=== PATIENT | female | born 1955 | race Caucasian/White ===

== ENCOUNTER 2023-09-09 09:42 | Outpatient (RCR) | payer OTHER, SELFPAY | END 2023-09-09 23:59 | disposition home or self-care (01) | LOC: RPT 09:42 | PROVIDERS: ATTENDING PHYSICIAN Obstetrics & Gynecology; PRIMARYCARE PHYSICIAN Family Medicine | DX: M62.89 Other specified disorders of muscle (principal); N81.6 Rectocele; Z73.6 Limitation of activities due to disability; M62.81 Muscle weakness (generalized); R27.8 Other lack of coordination | CPT/HCPCS: 97110; 97140 ==

== ENCOUNTER 2023-10-14 13:55 | Outpatient (RCR) | payer OTHER, SELFPAY | END 2023-10-14 23:59 | disposition home or self-care (01) | LOC: RPT 13:55 | PROVIDERS: ATTENDING PHYSICIAN Obstetrics & Gynecology; PRIMARYCARE PHYSICIAN Family Medicine | DX: M62.89 Other specified disorders of muscle (principal); N81.6 Rectocele; Z73.6 Limitation of activities due to disability; M62.81 Muscle weakness (generalized); R27.8 Other lack of coordination | CPT/HCPCS: 97014; 97110; 97112; 97140; 97530 ==

== ENCOUNTER 2023-11-04 12:56 | Outpatient (RCR) | payer OTHER, SELFPAY | END 2023-11-04 14:12 | disposition home or self-care (01) | LOC: RPT 12:56 | PROVIDERS: ATTENDING PHYSICIAN Obstetrics & Gynecology; PRIMARYCARE PHYSICIAN Family Medicine | DX: M62.89 Other specified disorders of muscle (principal); N81.6 Rectocele; Z73.6 Limitation of activities due to disability; M62.81 Muscle weakness (generalized); R27.8 Other lack of coordination | CPT/HCPCS: 97530 ==

== ENCOUNTER → 2024-02-10 13:19 | Outpatient (REF) | payer SELFPAY | LOC: HWRAD 13:19 | PROVIDERS: ATTENDING PHYSICIAN Family Medicine | DX: I70.0 Atherosclerosis of aorta (principal) | CPT/HCPCS: 75571 ==

== ENCOUNTER → 2024-03-03 11:37 | Outpatient (REF) | payer OTHER, SELFPAY | LOC: PET 11:37 | PROVIDERS: ATTENDING PHYSICIAN Internal Medicine Cardiovascular Disease | DX: I25.10 Atherosclerotic heart disease of native coronary artery without angina pectoris (principal) | CPT/HCPCS: 78431; A9555; J2785 ==

== ENCOUNTER → 2024-03-09 12:08 | Outpatient (REF) | payer OTHER, SELFPAY | LOC: HWWDC 12:08 | PROVIDERS: ATTENDING PHYSICIAN Obstetrics & Gynecology; FAMILY PHYSICIAN Family Medicine | DX: Z12.31 Encounter for screening mammogram for malignant neoplasm of breast (principal) | CPT/HCPCS: 77063; 77067 ==

== ENCOUNTER → 2024-06-29 14:38 | Outpatient (REF) | payer OTHER, SELFPAY | LOC: HWRAD 14:38 | PROVIDERS: ATTENDING PHYSICIAN Family Medicine; OTHER PHYSICIAN Obstetrics & Gynecology | DX: N95.1 Menopausal and female climacteric states (principal) | CPT/HCPCS: 77080 ==

== ENCOUNTER → 2024-11-27 16:40 | Outpatient (REF) | payer OTHER, SELFPAY | LOC: HWRAD 16:40 | PROVIDERS: ATTENDING PHYSICIAN Student in an Organized Health Care Education/Training Program | DX: R09.89 Other specified symptoms and signs involving the circulatory and respiratory systems (principal) | CPT/HCPCS: 71046 ==

== ENCOUNTER → 2024-12-03 13:48 | Outpatient (REF) | payer OTHER, SELFPAY | LOC: RAD 13:48 | PROVIDERS: ATTENDING PHYSICIAN Family Medicine; REFERRING PHYSICIAN Internal Medicine Cardiovascular Disease | DX: I65.23 Occlusion and stenosis of bilateral carotid arteries (principal) | CPT/HCPCS: 93880 ==

== ENCOUNTER → 2024-12-10 14:16 | Outpatient (REF) | payer OTHER, SELFPAY | LOC: HWRAD 14:16 | PROVIDERS: ATTENDING PHYSICIAN Family Medicine | DX: E04.1 Nontoxic single thyroid nodule (principal) | CPT/HCPCS: 76536 ==

== ENCOUNTER 2025-04-04 13:42 | Inpatient (IN) | payer OTHER, SELFPAY ==
[2025-04-04 05:57] VITALS: BP 168/73
[2025-04-04 06:28] LABS: COVID-19 Antigen Positive (Negative)
--- NOTE | 2025-04-04 07:29 | ED.GENMED ---
History of Present Illness
General
Chief Complaint: Cold/Flu/URI Symptoms
Source: patient
Exam Limitations: none
Time Seen by Provider: 04/04/25 07:17
History of Present Illness
History of Present Illness:
69-year-old female presents with 4 days worth of fatigue difficulty breathing fever. She tested positive for COVID at home. She has been trying to hydrate and control her fever. Her symptoms worsened overnight and she presented here. She notes
feeling foggy in her head with decreased appetite and lack of taste. No vomiting. She also notes frequent bowel movements.
Past History
Past History
ED Past Medical History: HTN, Hypercholesterolemia and Other (Vaso vegal syncope, mineral corticocorticoid excess)
ED Past Surgical History: Gynecological (Ovarian cyst removed)
Social History
Tobacco: Former smoker
Alcohol: None
Personal:
Living: with family
Employment: Employed
Phy Exam
Physical Exam
Physical Exam:
General: Well-appearing female no acute respiratory distress
HEENT: Normocephalic atraumatic
Heart: Regular rate and rhythm
Lungs: Clear no wheeze
Abdomen is soft nontender nondistended
Extremities: No cyanosis
Skin warm no rash
Course
Orders/Labs/Results
Orders:
Orders
04/04/25 06:08
COVID-19 Antigen Urgent
Source: Nasal Swab
Influenza A+B Rapid Molecular Urgent
LAVELL Source: Nasal Swab
Specimen Description:
04/04/25 07:28
0.9% Sodium Chloride 1000 ml [Nss] 1,000 ml IV BOLUS
04/04/25 07:59
Complete Blood Count/With Diff Urgent
Comprehensive Metabolic Panel Urgent
04/04/25 09:19
Osmolality, Random Urine Urgent
Date Specimen was Collected: 04/04/25
Time Specimen was Collected: 09:54
Urine Sodium Urgent
Date Specimen was Collected: 04/04/25
Time Specimen was Collected: 09:54
04/04/25 09:44
Serum Osmolality Urgent
Abnormal Lab Results
04/04/25 04/04/25
06:08 07:59
RBC 4.12 L 10^6/uL
(4.20-5.40)
Hct 34.3 L %
(37.0-47.0)
Absolute Lymphs (auto) 0.4 L 10^3/uL
(1.2-3.4)
Neutrophils % 87.5 H %
(42.2-75.2)
Lymphocytes % 5.4 L %
(20.5-51.1)
Sodium 121 L mmol/L
(135-145)
Chloride 91 L mmol/L
(98-107)
Creatinine 0.5 L mg/dL
(0.6-1.0)
Glucose 106 H mg/dl
(70-99)
SARS-CoV-2 Antigen Positive A
(Negative)
04/04/25 07:59
04/04/25 07:59
Vital Signs
Initial and Last Documented VS:
Initial Vital Signs
Temp Pulse Resp BP Pulse Ox
97.5 F 71 22 168/73 100
04/04/25 05:57 04/04/25 05:57 04/04/25 05:57 04/04/25 05:57 04/04/25 05:57
Last Documented Vital Signs
Temp Pulse Resp BP Pulse Ox
98.3 F 69 16 149/66 99
04/04/25 09:50 04/04/25 09:50 04/04/25 09:50 04/04/25 09:50 04/04/25 09:50
MDM/Problems Addressed
Differential Diagnosis Includes:
Patient overall unwell feeling associated with recent COVID-positive test. She did test positive for COVID here. Fortunately there is no respiratory distress. She is 100% on room air and her heart rates in the 70s. She does appear somewhat dry
on exam. Will check basic labs and hydrate.
*Pulse Oximetry
SaO2: 100
Oxygen Mode of Delivery: Room air
Patient hypoxic: no
*Critical Care Note
Total Time (30-74mins, 75-104mins- exclusive of procedures): Not Applicable
Update Note
Update Note:
Labs reviewed. Patient does have hyponatremia. Her sodium is 121. This is an acute problem. Urine osmolality sodium and serum osmolality ordered. Given acute hyponatremia will admit to hospital
ED Attending Note
-
Portions of this chart may have been created with voice recognition software.� Occasional wrong word or��sound alike� substitutions may have occurred due to the inherent limitations of voice recognition software.
Discharge Plan
Departure
Patient Disposition: Admit
Date of Disposition: 04/04/25
Time of Disposition: 10:00
Presentation/result/management discussed w/ accepting MD/DO: Hospitalist
Discharge Problem:
Acute hyponatremia
Prescriptions:
No Action
atorvastatin 20 MG tablet
80 mg PO HS
folic acid 0.4 MG tablet
0.8 mg PO DAILY
spironolactone 50 MG tablet
50 mg PO DAILY
cholecalciferol (vitamin D3) 2,000 UNITS tablet
2,000 units PO DAILY
lutein 20 MG tablet
20 mg PO DAILY
polyethylene glycol 3350 [Miralax] 17 gram Powder In Packet
17 g PO DAILY
diltiazem HCl 180 mg capsule,extended release 24hr
180 mg PO DAILY
aspirin 81 mg Tablet,Delayed Release (Dr/Ec)
81 mg PO HS
docusate sodium 100 mg Capsule
100 mg PO BID Qty: 0 0RF
Referrals:
[facility], [Other]
Celestina Nelson CRNP [Family Provider, Family Practice]
Interventions
Interventions:
*Risk Screen - Suicide Last Done: 04/04/25 06:02
*General Assessment Last Done: 04/04/25 06:02
*Neglect/Abuse Screening Last Done: 04/04/25 06:02
*ED- Fall Risk Assessment Last Done: 04/04/25 08:06
*ED COVID-19 Vaccine History Last Done: 04/04/25 08:06
ED- Pulmonary Assessment Last Done: 04/04/25 07:29
Discharge Date and Time
Print Language: IRAQI
[2025-04-04] MEDS: NSS 1000 IV ×2 (08:05→15:23)
[2025-04-04 08:06] VITALS: BMI 18.5
[2025-04-04 08:07] VITALS: BP 135/68
[2025-04-04 08:18] LABS: Hematocrit 34.3 % (37.0-47.0); Hemoglobin 12.6 g/dL (12.0-16.0); Mean Corp Hgb Conc. 36.7 g/dL (33.0-37.0); Mean Corpuscular Volume 83.3 fL (81.0-99.0); Nucleated Red Blood Cells % 0 %; Platelet Count 240 10^3/uL (130-400); Red Cell Dist. Width 12.6 % (11.5-14.5)
[2025-04-04 08:37] LABS: ALT (SGPT) 24 U/L (0-35); AST (SGOT) 28 U/L (14-36); Albumin 4.2 g/dl (3.5-5.0); Alkaline Phosphatase 105 U/L (38-126); Blood Urea Nitrogen 7 mg/dl (7-17); Calcium 8.9 mg/dl (8.4-10.2); Carbon Dioxide 22 mmol/L (22-30); Chloride 91 mmol/L (98-107); Estimated Creatinine Clearance 62 ml/min; Glucose 106 mg/dl (70-99); Potassium 3.9 mmol/L (3.5-5.1); Sodium 121 mmol/L (135-145); Total Protein 6.6 g/dl (6.3-8.2); eGFR > 60.00
[2025-04-04 09:50] VITALS: BP 149/66
--- NOTE | 2025-04-04 11:24 | CM ---
CM reviewed chart and met with pt bedside in ED. Lives alone in 2 story home, 2 JUNG, first floor half BA, full flight of steps to second floor BR/full BA.
Independent in ADLs, personal care and ambulation at baseline. does not need assistive device but does have cane in home.
No hx VN/SNF
PCP: Portia Espino
Pharmacy: [facility]
Anticipate discharge home, watch for needs.
--- NOTE | 2025-04-04 13:31 | HPS.HSE ---
Family Physician
-
Family Physician: Dr dr Portia Torres
Chief Complaint
-
fatigue, not feeling much to eat, her head feels foggy. she got diagnosed with COVID at home kit on .
History of Present Illness
69 yrs old feels fatigue, difficulty in while on taking long deep breath for the past 4 days. She got diagnosed with COVID-19 positive, and her symptoms initially started with fever(which was subsided after taking Tylenol), followed by fatigue,
weakness, left leg myalgia and doesnt want to eat because of the loss of taste. No sick contacts so far she remember, not associated with abdominal pain.
Medical History
Past Medical History
Past Medical History: Reports Other
Additional Past Medical History:
Benign Atrial Tachycardia and patient was on Dilitiazem 180 mg
Acute constipation,
Essential hypertension.
Hypercholesteremia
Past Surgical History: Reports Other (Ovarian cyst removed)
Social History
Tobacco: Former Smoker
Alcohol: None
Drug: None
Personal:
Living: With Family
Employment: Employed
Family History
Family History: Not pertinent
Allergies / Home Medications
Allergies reflects when Allergies were last updated in [employer].
Home Medications with original date entered in [employer]
Beta Blockers,
Sulfa based medications
Allergy/Medication List:
Beta Blockers,
Sulfa based medications
Review of Systems
-
History Source: Patient
Constitutional: Reports Fever and Fatigue
Respiratory: Reports Trouble Breathing (while on taking deep breath)
Abdomen/GI: Reports Nausea
Musculoskeletal: Reports No Symptoms
Neurological: Reports No Symptoms
Endocrine: Reports No Symptoms
Hematologic/Lymphatic: Reports No Symptoms
Psych: Reports Calm
Physical Exam
Vital Signs
Vital Signs
Temp Pulse Resp BP Pulse Ox
98.3 F 69 16 149/66 99
04/04/25 09:50 04/04/25 09:50 04/04/25 09:50 04/04/25 09:50 04/04/25 09:50
Physical Exam
General: Comfortable
HEENT: Moist mucous membranes
Respiratory: Clear
Cardiac: S1/S2 and Regular Rhythm
GI: Soft and Non Tender
Skin: Warm
Neuro: AO x 3
Hematologic/Lymphatic: No Lymphadenopathy
Psych: Calm
Laboratory Results
-
04/04/25 07:59
04/04/25 07:59
Laboratory Results
Total Bilirubin 0.8 mg/dl (0.2-1.3) 04/04/25 07:59
AST 28 U/L (14-36) 04/04/25 07:59
ALT 24 U/L (0-35) 04/04/25 07:59
Alkaline Phosphatase 105 U/L (38-126) 04/04/25 07:59
Impression/Plan
-
IMPRESSION & PLAN:
# Myalgia and weakness secondary to COVID positive:
-Started Molupiravir 800 mg BID PO for 5 days.
- Tylenol added if the patient.
-Iasolation, requested to use mask.
#Hypovolemic hyponatremia (SIADH):
-Serum Osm= 261b (L), Serum Na= 121(L), Urine Osm= 273(L), Urinary Na= 29(L)
-Today the patient is on Euvolemic state and started with NSS 1000 ml @ 60 ML/HR
-Follow up with CBC, CMP, Urine, Osm, Serum osm
- Advice to have less than 50 ounce of water orally to prevent hypervolemic hyponatremia.
# Benign Atrial Tachycardia:
-Continuing on Dilitiazem HCL 180 mg
# CAD, Hypercholesteremia:
- Continuing Aspirin 81 mg PO, Atorvostatin 80 mg.
# Essential hypertension:
Spironolactone 50 mg
DVT Prophylaxis: Lovenax 30 mg
Disposition: Home
[2025-04-04 14:17] VITALS: BP 110/68
[2025-04-04 14:18] VITALS: BMI 19.8
[2025-04-04] MEDS: VITAMIN D3 (cholecalciferol) 50 MCG PO (15:24)
[2025-04-04] MEDS: MOLNUPIRAVIR (EUA) 800 MG PO ×2 (15:31→22:57)
[2025-04-04] MEDS: ANESTHETIC LOZENGE 1 LOZENGE PO (16:52)
[2025-04-04] MEDS: LOVENOX 30 MG SC (17:00)
[2025-04-04] MEDS: COLACE PO (19:14)
[2025-04-04 19:23] VITALS: BP 137/60
[2025-04-04] MEDS: LIPITOR 80 MG PO (22:38)
[2025-04-04] MEDS: ASPIR LOW (ENTERIC COATED) 81 MG PO (22:38)
[2025-04-04 23:12] VITALS: BP 139/63
[2025-04-05] MEDS: NSS 1000 IV (05:27)
--- NOTE | 2025-04-05 06:14 | W.PN.HOSP.TC ---
Addendum entered and electronically signed by Rashid Mercedes MD 04/05/25 15:39:
Read, reviewed, and agree. See same day progress note for additional details. Time spent coordinating care, DC planning, review of DC plan of care with resident, transition of care, review of records in EMR, med rec, consults, notes, d/w
consultants, nursing, family, and CM mins
DC home. Asymptomatic not hypoxic. Fatigue improved. Hyponatremia improved. Likely more related to poor p.o. intake dehydration rather than COVID. No indications for steroids or antivirals at this time as not hypoxic.
Additionally the antiviral that she is currently on has a $300-$400 co-pay.
More than 30 minutes spent in discharge including
Final examination of the patient
Summarizing hospital stay
Instructions for continuing care to all relevant caregivers
Preparation of discharge records, prescriptions, and referral forms
Total time spent (in minutes):
Original Note:
Today's Communication/Plan
-
Hypovolemic hyponatremia:
Likely secondary to reduced intake secondary to COVID as well as use of spironolactone.
Follow up with PCP doctor within a week to recheck BMP.
Start oral free water restriction of 50 ounces daily.
Assessment / Plan
Assessment / Plan
Hypovolemic hyponatremia:
Likely secondary to reduced intake secondary to COVID as well as use of spironolactone.
Initial sodium 121 yesterday got improved today to 132.
Does have some weakness though more likely associated with underlying viral infection rather than symptom of hyponatremia.
Started on IV fluids, and pt is on advanced diet.
Will continue with maintenance IVF and trend BMP for now.
Start oral free water restriction of 50 ounces daily.
Myalgia and weakness secondary to COVID positive:
-Started Molupiravir 800 mg BID PO for 5 days was stopped while on discharge.
- Patient has ADR for paxlovid which causes drop in blood pressure which she has mentioned at the history.
-Tylenol added if the patient.
-Isolation, requested to use mask.
Anticipated Discharge: Today
Subjective/Interval History
-
Date of Service: April 05, 2025
Today the patient is feeling better. She doesnt has a concern for fever, shortness of breath, fever.
Objective Data
-
Labs:
04/05/25 06:41
04/05/25 06:41
Laboratory Results
Total Bilirubin 0.7 mg/dl (0.2-1.3) 04/05/25 06:41
AST 26 U/L (14-36) 04/05/25 06:41
ALT 23 U/L (0-35) 04/05/25 06:41
Alkaline Phosphatase 103 U/L (38-126) 04/05/25 06:41
Laboratory Results
Vital Signs:
Vital Signs
Temp Pulse Resp BP Pulse Ox
98.2 F 70 18 139/63 99
04/04/25 23:12 04/04/25 23:12 04/04/25 23:12 04/04/25 23:12 04/04/25 23:12
I&O
04/03/25 04/04/25 04/05/25
06:59 06:59 06:59
Intake Total 240 / 240
Output Total 300 / 300
Balance -60 / -60
Review of Systems
-
History Source: Patient
All other systems: Reviewed and negative
EENT: Reports No Symptoms Reported
Respiratory: Reports No Symptoms
Abdomen/GI: Reports No Symptoms
Breast: Reports No Symptoms
Genitourinary: Reports No Symptoms
Skin: Reports No Symptoms
Neuro: Reports No Symptoms
Endocrine: Reports No Symptoms
Hematologic / Lymphatic: Reports No Symptoms
Allergy / Immunology: Reports No Symptoms
Physical Exam
-
General: No Apparent Distress
HEENT: Moist Mucous Membranes
Respiratory: Clear to Auscultation
Cardiac: Regular Rhythm and S1/S2
GI: Soft, Nontender and Nondistended
Genito-urinary: No Costovertebral Tender
Musculoskeletal: No Clubbing
Skin: Warm
Neuro: AO x 3
Hematologic / Lymphatic: No Lymphadenopathy
Psych: Calm
[2025-04-05 07:00] VITALS: BP 120/52
[2025-04-05 07:15] LABS: Hematocrit 34.9 % (37.0-47.0); Hemoglobin 12.3 g/dL (12.0-16.0); Mean Corp Hgb Conc. 35.2 g/dL (33.0-37.0); Mean Corpuscular Volume 86.2 fL (81.0-99.0); Nucleated Red Blood Cells % 0 %; Platelet Count 300 10^3/uL (130-400); Red Cell Dist. Width 12.8 % (11.5-14.5)
[2025-04-05 07:59] LABS: ALT (SGPT) 23 U/L (0-35); AST (SGOT) 26 U/L (14-36); Albumin 4.2 g/dl (3.5-5.0); Alkaline Phosphatase 103 U/L (38-126); Blood Urea Nitrogen 9 mg/dl (7-17); Calcium 9.1 mg/dl (8.4-10.2); Carbon Dioxide 23 mmol/L (22-30); Chloride 102 mmol/L (98-107); Estimated Creatinine Clearance 67 ml/min; Glucose 87 mg/dl (70-99); Potassium 3.8 mmol/L (3.5-5.1); Sodium 132 mmol/L (135-145); Total Protein 6.7 g/dl (6.3-8.2); eGFR > 60.00
[2025-04-05] MEDS: MOLNUPIRAVIR (EUA) 800 MG PO (08:25)
[2025-04-05] MEDS: VITAMIN D3 (cholecalciferol) 50 MCG PO (08:25)
[2025-04-05] MEDS: FOLVITE 0.8 MG PO (08:25)
[2025-04-05] MEDS: CARDIZEM CD 180 MG PO (08:25)
[2025-04-05] MEDS: COLACE 100 MG PO (08:25)
[2025-04-05] MEDS: ALDACTONE 50 MG PO (08:25)
[2025-04-05] MEDS: MIRALAX 17 GRAMS PO (08:25)
[2025-04-05] MEDS: ANESTHETIC LOZENGE 1 LOZENGE PO (08:36)
--- NOTE | 2025-04-05 14:26 | CM ---
CM following re: discharge planning.
Reviewed pt's chart, met with pt.
Discharge order noted. Pt is aware, expressed her agreement with discharge and pt stated her son will transport her home after his work. IMM reviewed, placed on chart, pt has a copy.
Pt is independent in all areas LEGISLATIVE AIDE. No after care VN services indicated.
D/C plan: home no after care VN needs.Son to transport.
[2025-04-05 16:34] VITALS: BP 101/52
--- NOTE | 2025-04-05 21:25 | W.DCSUMMARY ---
Addendum entered and electronically signed by Vamsi Miranda MD, Resident 04/10/25 07:57:
Underweight:
BMI: 19.8
Advised to focus on gradually increasing calorie intake with nutrient- rich foods.
Original Note:
Discharge Summary
Discharge Data
Date of Admission: 04/04/25
Date of Discharge: 04/05/25
-
Pending Results: No
Hospital Course
Discharging Physician : Dr Vamsi Miranda
Rashid Jerome MD
Disposition : Home
Primary care physician : Portia Ramirez
Principal Discharge diagnosis : Hypovolemic Hyponatremia
COVID - 19 Positive
Chronic Discharge diagnosis :
SIADH
Atrial Tachycardia
Dyslipidemia
GERD
Raynaud's syndrome
Hospital Course : On 04/04/25 69-year-old female with hypertension, dyslipidemia, GERD, syndrome of apparent mineralocorticoid excess, Raynaud's syndrome, GERD, bilateral carotid stenosis, atrial tachycardia, vitamin D deficiency with osteoporosis,
H/O SIADH, H/O vasovagal syncope presented to the ED with a complaint of URI symptoms. Symptoms include fatigue, shortness of breath, subjective fever for 4 days. Tested positive for COVID at home. Patient felt a foggy sensation in her head with
decreased appetite and lack of taste. Labs with sodium 121, chloride 91, serum osmolality 261, urine osmolality 273, urine sodium 29. COVID-19 antigen testing was positive. Patient was given 1 L normal saline in the ED and advised on oral free
water restriction of 50 ounces daily. Spironolactone was stopped at the time of admission to rule out the cause of Hyponatremia. While at the course of the admission her Serum Na 132 got improved. Patient has ADR for Paxlovid which caused drop in
blood pressure which she had COVID previously. Patient was started on Molupiravir 800 mg BID PO for 5 days but was stopped while on discharge.(because of the high co-pay cost, and she didn't experience hypoxic symptoms) while on discharge.
Isolation, requested to use mask, Tylenol, antihistamines added as PRN. Patient was stable at the course of admission. Advised to follow up with PCP within a week to recheck her BMP panel.
CODE: Full
Important imaging findings :none
Procedure findings :
none
Discharge Plan
-
Patient Disposition: Home (Routine Discharge)
Discharge Diagnosis/Procedures: Hypovolemic Hyponatremia
Condition: Good
Diet: No restrictions
Additional Diets: Hydration required. But limit oral liquids to 40 ounce/day because of her SIADH.
Activity: No restrictions
Driving Restrictions: As prior to admission
Bathing Restrictions: None
Instructions: Acute Bronchitis, Adult (DC), Viral Upper Respiratory Infection, Adult (DC), Fever, Adult (DC), Coronavirus Home Quarantine, BLOOD PRESSURE
Referrals:
Celestina Nelson CRNP [Family Provider, Family Practice]
Additional Discharge Medication Instructions: Follow up with PCP within a week of discharge, try to recheck BMP within one week while on follow up.
Continue tylenol if experience fever, headache.
Continue Antihistamines if its required.
Prescriptions:
Continued
atorvastatin 20 MG tablet
80 mg PO HS
folic acid 0.4 MG tablet
0.4
spironolactone 50 MG tablet
25 mg PO DAILY
cholecalciferol (vitamin D3) 2,000 UNITS tablet
2,000 units PO DAILY
lutein 20 MG tablet
20 mg PO DAILY
polyethylene glycol 3350 [Miralax] 17 gram Powder In Packet
17 g PO DAILY
diltiazem HCl 180 mg capsule,extended release 24hr
180 mg PO DAILY
aspirin 81 mg Tablet,Delayed Release (Dr/Ec)
81 mg PO HS
docusate sodium 100 mg Capsule
100 mg PO BID Qty: 0 0RF
Rx Instructions:
Pt takes karri once a day colace 100mg
Discharge Orders:
Discharge Patient (As Directed); Ordered 04/05/25
Ordered By: Vamsi Miranda
Discharge Date and Time
Discharge Date/Time: 04/05/25 18:46
Print Language: KOREAN
--- NOTE | 2025-04-06 09:37 | PN.CDI ---
CDI
- -
CDI:
Physician Documentation Request
Admit Date: 04/04/25 13:42
Dear Doctor Ruben,
Please review the following and provide your response in the progress notes.
Clinical Indicators:
Height: 5' 1'
Weight: 105 lbs
BMI: 19.8
If possible, please provide an associated diagnosis related to the abnormal BMI, such as:
Underweight
Cachectic
BMI is not significant
Other
BMI < or = to 19.9
Underweight
Weight Loss
Cachectic
Anorexia
Use of terms such as suspected, likely, concern for, or probable (associated with a specific diagnosis that is being evaluated, monitored, or treated as if it exists) are acceptable and can be coded in the inpatient setting, when documented at the
time of discharge.
Thank you,
Shannan García RN, BSN
CDI Specialist
Available via [place] text
Please use your independent medical judgment in providing your response.
== END 2025-04-05 18:46 | disposition home or self-care (01) | DRG 178 ==
LOC: 2 NORTH 13:42
PROVIDERS: Physician Assistant; Student in an Organized Health Care Education/Training Program; ADMITTING PHYSICIAN Internal Medicine; ATTENDING PHYSICIAN Hospitalist; EMERGENCY PHYSICIAN Emergency Medicine; FAMILY PHYSICIAN Nurse Practitioner
DX: U07.1 COVID-19 (principal); E22.2 Syndrome of inappropriate secretion of antidiuretic hormone; I47.19 Other supraventricular tachycardia; Z68.1 Body mass index [BMI] 19.9 or less, adult; I10 Essential (primary) hypertension; E78.00 Pure hypercholesterolemia, unspecified; E86.1 Hypovolemia; I73.00 Raynaud's syndrome without gangrene; K21.9 Gastro-esophageal reflux disease without esophagitis; E55.9 Vitamin D deficiency, unspecified; I25.10 Atherosclerotic heart disease of native coronary artery without angina pectoris; R63.6 Underweight; I65.23 Occlusion and stenosis of bilateral carotid arteries; M81.0 Age-related osteoporosis without current pathological fracture; Z79.82 Long term (current) use of aspirin; Z79.899 Other long term (current) drug therapy; Z87.891 Personal history of nicotine dependence
CPT/HCPCS: 80053; 83930; 83935; 84300; 85025; 87070; 87502; 87811; 96360; 99285

== ENCOUNTER 2025-04-15 11:08 | Inpatient (IN) | payer OTHER, SELFPAY ==
[2025-04-11] VITALS (9 sets, daily range): BP systolic 152–192; BP diastolic 59–77; PULSE 79–96
[2025-04-11 15:21] LABS: Urine Character Clear (Clear)
[2025-04-11 15:36] LABS: ALT (SGPT) 21 U/L (0-35); AST (SGOT) 24 U/L (14-36); Albumin 4.6 g/dl (3.5-5.0); Alkaline Phosphatase 94 U/L (38-126); Blood Urea Nitrogen 15 mg/dl (7-17); Calcium 9.6 mg/dl (8.4-10.2); Carbon Dioxide 23 mmol/L (22-30); Chloride 102 mmol/L (98-107); Glucose 115 mg/dl (70-99); Potassium 4.6 mmol/L (3.5-5.1); Sodium 133 mmol/L (135-145); Total Protein 7.4 g/dl (6.3-8.2); eGFR > 60.00
[2025-04-11 19:09] LABS: Hematocrit 36.5 % (37.0-47.0); Hemoglobin 12.9 g/dL (12.0-16.0); Mean Corp Hgb Conc. 35.3 g/dL (33.0-37.0); Mean Corpuscular Volume 85.5 fL (81.0-99.0); Nucleated Red Blood Cells % 0 %; Platelet Count 364 10^3/uL (130-400); Red Cell Dist. Width 13.2 % (11.5-14.5)
--- NOTE | 2025-04-11 19:10 | ED.GENMED ---
History of Present Illness
<Nicole Wolfe PA-C - Last Filed: 04/12/25 16:12>
General
Chief Complaint: Fainting Sensation
Source: patient
Exam Limitations: none
Time Seen by Provider: 04/11/25 18:31
Nursing documentation reviewed up to this point in time: agreed with
History of Present Illness
History of Present Illness:
Patient is a 69-year-old female who presents to the emergency department for evaluation of lightheadedness and weakness. Patient states that earlier today she began feeling very weak and lightheaded. She also felt nauseous. She denies any
syncopal events. She denies any associated chest pain or shortness of breath. No abdominal pain. She denies any fevers or chills
Patient concerned that she was recently admitted in the hospital following COVID with acute hyponatremia. She is concerned that her sodium level may have dropped again.
Past History
<Nicole Wolfe PA-C - Last Filed: 04/12/25 16:12>
Past History
ED Past Medical History: HTN, Hypercholesterolemia and Other (Vaso vegal syncope, mineral corticocorticoid excess)
ED Past Surgical History: Gynecological (Ovarian cyst removed)
Social History
Tobacco: Former smoker
Alcohol: None
Personal:
Living: with family
Employment: Employed
Review of Systems
<Nicole Wolfe PA-C - Last Filed: 04/12/25 16:12>
Review of Systems
Allergies reviewed?: Yes
All Other Systems: ROS reviewed and negative except as documented in HPI and ROS
Phy Exam
<Nicole Wolfe PA-C - Last Filed: 04/12/25 16:12>
Physical Exam
Physical Exam:
Vitals: Hypertensive, otherwise vital signs stable. Afebrile
General: Patient is in no acute distress.
Skin: Warm and dry, no rashes or lesions
Head: Normocephalic, atraumatic
Eyes: Sclera nonicteric.
Throat: Protecting airway
Neck: Normal ROM, no cervical spine tenderness, no meningismus
Cardiac: Regular rate and rhythm, no murmurs. 2+ palpable radial pulses bilaterally
Pulm: Normal respiratory effort, no wheezes, rales, rhonchi heard on exam
Abdomen: Abdomen soft and nontender.
Extremities: No evidence of cyanosis or edema. Strength 5/5 in bilateral upper and lower extremities.
Neuro: AAOx3. Grossly intact.
Psychiatric: Normal affect.
Course
<Nicole Wolfe PA-C - Last Filed: 04/12/25 16:12>
Orders/Labs/Results
Orders:
Orders
04/11/25 14:58
EKG [Electrocardiogram (*1)] Urgent
Reason for Study: Fatigue / Weakness
EKG- Treatment ONCE
04/11/25 15:08
Comprehensive Metabolic Panel Urgent
Serum Osmolality Urgent
Urinalysis Reflex To Culture Urgent
Date Specimen was Collected: 04/11/25
Time Specimen was Collected: 14:58
Urine Sodium Urgent
Date Specimen was Collected: 04/11/25
Time Specimen was Collected: 14:58
04/11/25 18:59
Complete Blood Count/With Diff Urgent
04/11/25 19:09
Orthostatic VS- Treatment ONCE
0.9% Sodium Chloride 1000 ml [Nss] 1,000 ml IV BOLUS
Acetaminophen [Tylenol] 650 mg PO NOW STA
04/11/25 20:20
Ondansetron Injectable [Zofran] 4 mg .ROUTE .STK-MED ONE
04/11/25 20:21
Ondansetron Injectable [Zofran] 4 mg IV NOW STA
04/11/25 21:51
CT Head W/o Iv Contrast Urgent
Comment:
Reason For Exam: weakness
0.9% Sodium Chloride 500 ml [Nss] 500 ml IV BOLUS
04/12/25 00:21
Admit/Transfer Patient As Directed
Co-Sign Provider:
Level of Care: Observation services
Assign to:: Telemetry
Physician / Group: Hakan
Diagnosis: weakness
Reason for Telemetry: Syncope
Date to Stop Telemetry: 04/14/25
Time to Stop Telemetry: 11:00
PRN Pain Medication Management As Directed
May give lesser potent ordered pain med per pt: Yes
preference::
Protocol:: Medication orders for pain may be administered in a
manner that supports deferring to patient preference
when the pt is:
- Requesting an ordered lesser potent pain medication.
Least to most potent pain medications are defined
as: acetaminophen < NSAID < tramadol < opioids
(morphine, oxycodone, hydromorphone).
- Requesting a lesser dose of the same medication IF
ORDERED.
- Requesting a less intrusive route of administration
if both routes are prescribed by the provider (PO <
IV).
04/12/25 00:22
Code Status As Directed
Resuscitation Status: Full Code
04/12/25 00:26
Orthostatic Vital Signs As Directed
Orthostatic VS Frequency: Now
04/12/25 02:33
0.9% Sodium Chloride 1000 ml [Nss] 1,000 ml IV 100 mls/hr
Acetaminophen [Tylenol] 650 mg PO Q4HPRN PRN
Bisacodyl [Dulcolax] 10 mg RECTAL [id number] PRN
Docusate W/Senna [Senokot-S] 1 tablet PO BIDPRN PRN
Ondansetron Injectable [Zofran] 4 mg IV Q6HPRN PRN
Polyethylene Glycol Powder [Miralax] 17 grams PO DAILYPRN PRN
04/12/25 02:33
Activity As Directed
Activity Level: With Assistance
Orthostatic Vital Signs As Directed
Orthostatic VS Frequency: Daily
Pneumatic Compression Sleeves As Directed
Type: Knee high
Vital Signs As Directed
Frequency: Per unit guidelines
Pt Eval And Treat Routine
Activity Level: With Assistance
DX Deep Vein Thrombosis Video Routine
04/12/25 05:02
Basic Metabolic Panel IN AM
Magnesium IN AM
TSH IN AM
04/12/25 Breakfast
Regular
At Your Request: Full Participation
Does patient need a safe tray?: No
Fluid Restriction: 1500 mL/day (50 oz)
04/12/25 08:00
Diltiazem Extended Release [Cardizem Cd] 180 mg PO DAILY
Docusate Sodium [Colace] 100 mg PO BID
FOLic ACID [Folvite] 0.4 mg PO DAILY
Spironolactone [Aldactone] 25 mg PO DAILY
04/12/25 22:00
Aspirin Low Dose EC [Aspir Low (Enteric Coated)] 81 mg PO HS
Atorvastatin [Lipitor] 80 mg PO HS
04/14/25 11:00
DC Protocol for Telemetry ONCE
Abnormal Lab Results
04/11/25 04/11/25
15:08 18:59
Hct 36.5 L %
(37.0-47.0)
Absolute Neuts (auto) 7.8 H 10^3/uL
(1.4-6.5)
Neutrophils % 79.4 H %
(42.2-75.2)
Lymphocytes % 12.3 L %
(20.5-51.1)
Sodium 133 L mmol/L
(135-145)
Glucose 115 H mg/dl
(70-99)
Urine Sodium 140 H mmol/L
(30-90)
04/11/25 18:59
04/11/25 15:08
Vital Signs
Initial and Last Documented VS:
Initial Vital Signs
Temp Pulse Resp BP Pulse Ox
98.9 F 69 19 166/66 98
04/11/25 14:55 04/11/25 14:55 04/11/25 14:55 04/11/25 14:55 04/11/25 14:55
Last Documented Vital Signs
Temp Pulse Resp BP Pulse Ox
98.6 F 73 17 108/53 98
04/12/25 15:18 04/12/25 15:18 04/12/25 15:18 04/12/25 15:18 04/12/25 15:18
<Blake Hager, DO - Last Filed: 04/11/25 22:24>
Orders/Labs/Results
Orders:
Orders
04/11/25 14:58
EKG [Electrocardiogram (*1)] Urgent
Reason for Study: Fatigue / Weakness
EKG- Treatment ONCE
04/11/25 15:08
Comprehensive Metabolic Panel Urgent
Serum Osmolality Urgent
Urinalysis Reflex To Culture Urgent
Date Specimen was Collected: 04/11/25
Time Specimen was Collected: 14:58
Urine Sodium Urgent
Date Specimen was Collected: 04/11/25
Time Specimen was Collected: 14:58
04/11/25 18:59
Complete Blood Count/With Diff Urgent
04/11/25 19:09
Orthostatic VS- Treatment ONCE
0.9% Sodium Chloride 1000 ml [Nss] 1,000 ml IV BOLUS
Acetaminophen [Tylenol] 650 mg PO NOW STA
04/11/25 20:20
Ondansetron Injectable [Zofran] 4 mg .ROUTE .STK-MED ONE
04/11/25 20:21
Ondansetron Injectable [Zofran] 4 mg IV NOW STA
04/11/25 21:51
CT Head W/o Iv Contrast Urgent
Comment:
Reason For Exam: weakness
0.9% Sodium Chloride 500 ml [Nss] 500 ml IV BOLUS
04/12/25 00:21
Admit/Transfer Patient As Directed
Co-Sign Provider:
Level of Care: Observation services
Assign to:: Telemetry
Physician / Group: Hakan
Diagnosis: weakness
Reason for Telemetry: Syncope
Date to Stop Telemetry: 04/14/25
Time to Stop Telemetry: 11:00
PRN Pain Medication Management As Directed
May give lesser potent ordered pain med per pt: Yes
preference::
Protocol:: Medication orders for pain may be administered in a
manner that supports deferring to patient preference
when the pt is:
- Requesting an ordered lesser potent pain medication.
Least to most potent pain medications are defined
as: acetaminophen < NSAID < tramadol < opioids
(morphine, oxycodone, hydromorphone).
- Requesting a lesser dose of the same medication IF
ORDERED.
- Requesting a less intrusive route of administration
if both routes are prescribed by the provider (PO <
IV).
04/12/25 00:22
Code Status As Directed
Resuscitation Status: Full Code
04/12/25 00:26
Orthostatic Vital Signs As Directed
Orthostatic VS Frequency: Now
04/12/25 02:33
0.9% Sodium Chloride 1000 ml [Nss] 1,000 ml IV 100 mls/hr
Acetaminophen [Tylenol] 650 mg PO Q4HPRN PRN
Bisacodyl [Dulcolax] 10 mg RECTAL [id number] PRN
Docusate W/Senna [Senokot-S] 1 tablet PO BIDPRN PRN
Ondansetron Injectable [Zofran] 4 mg IV Q6HPRN PRN
Polyethylene Glycol Powder [Miralax] 17 grams PO DAILYPRN PRN
04/12/25 02:33
Activity As Directed
Activity Level: With Assistance
Orthostatic Vital Signs As Directed
Orthostatic VS Frequency: Daily
Pneumatic Compression Sleeves As Directed
Type: Knee high
Vital Signs As Directed
Frequency: Per unit guidelines
Pt Eval And Treat Routine
Activity Level: With Assistance
DX Deep Vein Thrombosis Video Routine
04/12/25 05:02
Basic Metabolic Panel IN AM
Magnesium IN AM
TSH IN AM
04/12/25 Breakfast
Regular
At Your Request: Full Participation
Does patient need a safe tray?: No
Fluid Restriction: 1500 mL/day (50 oz)
04/12/25 08:00
Diltiazem Extended Release [Cardizem Cd] 180 mg PO DAILY
Docusate Sodium [Colace] 100 mg PO BID
FOLic ACID [Folvite] 0.4 mg PO DAILY
Spironolactone [Aldactone] 25 mg PO DAILY
04/12/25 22:00
Aspirin Low Dose EC [Aspir Low (Enteric Coated)] 81 mg PO HS
Atorvastatin [Lipitor] 80 mg PO HS
04/14/25 11:00
DC Protocol for Telemetry ONCE
Abnormal Lab Results
04/11/25 04/11/25
15:08 18:59
Hct 36.5 L %
(37.0-47.0)
Absolute Neuts (auto) 7.8 H 10^3/uL
(1.4-6.5)
Neutrophils % 79.4 H %
(42.2-75.2)
Lymphocytes % 12.3 L %
(20.5-51.1)
Sodium 133 L mmol/L
(135-145)
Glucose 115 H mg/dl
(70-99)
Urine Sodium 140 H mmol/L
(30-90)
04/11/25 18:59
04/11/25 15:08
Vital Signs
Initial and Last Documented VS:
Initial Vital Signs
Temp Pulse Resp BP Pulse Ox
98.9 F 69 19 166/66 98
04/11/25 14:55 04/11/25 14:55 04/11/25 14:55 04/11/25 14:55 04/11/25 14:55
Last Documented Vital Signs
Temp Pulse Resp BP Pulse Ox
98.6 F 73 17 108/53 98
04/12/25 15:18 04/12/25 15:18 04/12/25 15:18 04/12/25 15:18 04/12/25 15:18
<Nicole Wolfe PA-C - Last Filed: 04/12/25 16:12>
MDM/Problems Addressed
Differential Diagnosis Includes:
Not limited to: Acute hyponatremia, postviral fatigue, orthostatic hypotension, electrolyte derangements, UTI, etc.
MDM/Problems Addressed:
69 year-old female presenting with lightheadedness and generalized weakness. Recent hospitalization for Covid and hyponatremia. Denies fevers, chest pain, shortness of breath, abdominal pain, dizziness. Vitals and exam as above.
Patient well appearing, in no apparent distress. Strength full intact with otherwise normal neurological exam. Cardio/pulmonary assessment unremarkable.
Differential broad and includes electrolyte abnormalities given hx recent hyponatremia, cardiac arrhythmia, post viral syndrome, UTI. Will check basic labs, EKG, UA and reassess.
Update: labs reviewed. No clinically significant abnormalities. Sodium is 133 which has increased from discharge six days ago. Otherwise chemistry unremarkable. Urine not infected. EKG without acute ischemic changes or evidence of arrhythmia.
Patient not orthostatic. She was given a liter of IVF however she said she still feels extremely weak and lightheaded when ambulating. Given persistent symptoms, will check CT head.
Update: CT head without acute findings. Patient has remained symptomatic. Discussed with attending to evaluate patient. Given persistent symptoms despite negative workup - will admit patient to hospital for observation. Patient accepted to
hospitalist service in stable condition.
Chronic conditions affecting care:
Hypertension
Acute Exacerbation and/or Progression of Chronic Illness:
Acutely hypertensive
<Nicole Wolfe PA-C - Last Filed: 04/12/25 16:12>
*Radiology
Radiology exam reviewed: radiology read reviewed
*Pulse Oximetry
SaO2: 98
Oxygen Mode of Delivery: Room air
Patient hypoxic: no
*EKG
Interpreted by ED Provider?: Yes
Interpretation: abnormal
Comparison EKG: no changes
Heart Rate: 65
Rate: normal
Rhythm: sinus
[place]: normal axis
Interval: normal QT interval
QRS Pattern: normal QRS
Ischemia: no ischemia
*Certified Indoor Environmentalist Interpretation
Rate: normal
Interpretation: normal
Heart Rate: 70
Rhythm: sinus
*Critical Care Note
Total Time (30-74mins, 75-104mins- exclusive of procedures): Not Applicable
Data Reviewed
Review of Other/Old Records Reveals: Labs (Labs from discharge on 04/05/2025-sodium of 132) and Discharge Summary (Discharge summary from 04/05/2025 from hospital after 1 night stay for acute hyponatremia)
<Nicole Wolfe PA-C - Last Filed: 04/12/25 16:12>
Patient Management
Discussion with other providers: Hospitalist
Escalation/DeEscalation of care consider admission/obs:
Admit for further observation
ED Attending Note
<Nicole Wolfe PA-C - Last Filed: 04/12/25 16:12>
-
Portions of this chart may have been created with voice recognition software.� Occasional wrong word or��sound alike� substitutions may have occurred due to the inherent limitations of voice recognition software.
<Blake Hager DO - Last Filed: 04/11/25 22:24>
ED Attending Note
Patient seen and examined by attending physician: Yes
I performed the substantive portion of visit, reviewed & personally made and approve the management plan that is documented in note by myself or [facility].: Yes
Discharge Plan
Departure
Patient Disposition: Admit
Date of Disposition: 04/11/25
Time of Disposition: 23:30
Presentation/result/management discussed w/ accepting MD/DO: Hospitalist
Discharge Problem:
Lightheadedness
Interventions
Interventions:
*Risk Screen - Suicide Last Done: 04/11/25 14:55
*General Assessment Last Done: 04/11/25 14:55
*Neglect/Abuse Screening Last Done: 04/11/25 14:55
*ED- Fall Risk Assessment Last Done: 04/11/25 14:55
*ED COVID-19 Vaccine History Last Done: 04/11/25 14:55
*Nursing Disposition Last Done: 04/12/25 07:59
ED- Cardiac Assessment Last Done: 04/11/25 23:20
ED- Neurological Assessment Last Done: 04/11/25 23:20
Discharge Date and Time
Discharge Date/Time: 04/12/25 07:40
[2025-04-11] MEDS: NSS 1000 IV (19:16)
[2025-04-11] MEDS: TYLENOL 650 MG PO (19:16)
[2025-04-11] MEDS: ZOFRAN 4 MG IV (20:21)
[2025-04-11] MEDS: NSS 500 IV (22:15)
[2025-04-12] VITALS (16 sets, daily range): BP systolic 81–167; BP diastolic 53–90; PULSE 76–101; O2SAT 98
--- NOTE | 2025-04-12 00:12 | HPS.HSE ---
Family Physician
-
Family Physician: Portia Torres
Chief Complaint
-
Lightheadedness
History of Present Illness
This is a 69-year-old female with hypertension, dyslipidemia, GERD, GERD, bilateral carotid stenosis, atrial tachycardia, H/O SIADH, H/O vasovagal syncope recently admitted for COVID infection and hyponatremia now accompanying with weakness and
lightheadedness.
She complains of 1 day of feeling lightheaded. She reported that she woke up in usual state of health. At around breakfast time she reported that when she bent her head and looked up she felt dizzy and lightheaded. She also felt nauseous but she
did not vomit. This sensation resolved board a few moments later he came back and has remained persistent since. She states she has some trouble with walking due to the sensation of lightheadedness. She denies any spinning sensation. She has not
had any further nausea or vomiting. She denies having any headache. She denies any focal numbness tingling or or weakness in lower or upper extremities. She denies having any chest pain palpitations orthopnea PND or dyspnea on exertion. No
recent diarrhea. Denies fevers or chills. She denies any urinary symptoms.
When she measured her blood pressure at home it was in the 150s systolic. Due to sensation of lightheadedness patient came to the emergency department because she felt that her sodium may have dropped again. During her last admission dropped
sodium dropped to 121.
In the emergency department here she was afebrile with a temp of 98.2, blood pressure was 166/68 with a pulse of 72 and she is satting 100% on room air. CT of the head was negative. ECG showed a normal sinus rhythm at a rate of 65 without any
acute ischemic changes. UA was negative. Sodium was 133, the rest of the electrolytes were all within normal limits. Glucose was normal. CBC was unremarkable.
Despite receiving 1 L of normal saline in the ED patient still felt too weak and lightheaded.
Medical History
Past Medical History
Past Medical History: Reports Other
Additional Past Medical History:
Benign Atrial Tachycardia and patient was on Dilitiazem 180 mg
Acute constipation,
Essential hypertension.
Hypercholesteremia
Past Surgical History: Reports Other (Ovarian cyst removed)
Social History
Tobacco: Former Smoker
Alcohol: None
Drug: None
Personal:
Living: With Family
Employment: Employed
Family History
Family History: Not pertinent
Allergies / Home Medications
Allergies reflects when Allergies were last updated in [employer].
Home Medications with original date entered in [employer]
Allergy/Medication List:
Beta Blockers,
Sulfa based medications
Review of Systems
-
Constitutional: Reports No Symptoms
EENT: Reports No Symptoms
Respiratory: Reports No Symptoms
Cardiac: Reports No Symptoms
Abdomen/GI: Reports No Symptoms
: Reports No Symptoms
Musculoskeletal: Reports No Symptoms
Skin: Reports No Symptoms
Neurological: Reports Dizzy
Endocrine: Reports No Symptoms
Hematologic/Lymphatic: Reports No Symptoms
Psych: Reports No Symptoms
Physical Exam
Vital Signs
Vital Signs
Temp Pulse Resp BP Pulse Ox
98.1 F 69 13 142/61 100
04/11/25 23:00 04/12/25 00:00 04/12/25 00:00 04/12/25 00:00 04/12/25 00:00
Physical Exam
General: Comfortable
HEENT: Moist mucous membranes
Respiratory: Clear
Cardiac: S1/S2 and Regular Rhythm
GI: Soft and Non Tender
Skin: Warm
Neuro: AO x 3
Hematologic/Lymphatic: No Lymphadenopathy
Psych: Calm
Laboratory Results
-
04/11/25 18:59
04/11/25 15:08
Laboratory Results
Total Bilirubin 1.0 mg/dl (0.2-1.3) 04/11/25 15:08
AST 24 U/L (14-36) 04/11/25 15:08
ALT 21 U/L (0-35) 04/11/25 15:08
Alkaline Phosphatase 94 U/L (38-126) 04/11/25 15:08
Data Reviewed
-
CT Scan: Report Reviewed by me
Medical Tests (Nuc Med, Echo, EKG etc): Image Personally Visualized and interpreted
Lab Data: Labs Reviewed by me
Old Records: Reviewed
Impression/Plan
-
IMPRESSION:
69-year-old with past medical history significant for hypertension, hyperlipidemia, SIADH, recent covid and hyponatremia now recovered presents with weakness and lightheadedness. W/U in ED with normal vital signs, ecg, labs, CT head and u/a. No
focal deficits. No signs of active infection. No medication changes. She does not appear hypovolemic and her sodium is improved to 133. She received 1 L NS and still remains lightheaded.
PLAN:
1. Weakness/Ligtheadedness -etiology uncertain. Will admit for observation and some hydration. If patient continues to have disequilibrium will consider getting an MRI in the a.m.
- admit to telemetry observation
- orthostatic vs
- check tsh
- continue iv fluids overnight
- PT eval
2. Hyponatremia - Resolving
- continue free water restriction to 1500 ml
- continue her spironolactone
3. HTN - stable
- if not orthostatic, will continue her diltiazem
- continue statin/asa 81
DVT PPX - SCDs
Code status - Full Code
[2025-04-12] MEDS: NSS 1000 IV ×3 (04:48→21:31)
[2025-04-12 05:36] LABS: Blood Urea Nitrogen 10 mg/dl (7-17); Calcium 9.7 mg/dl (8.4-10.2); Carbon Dioxide 21 mmol/L (22-30); Chloride 107 mmol/L (98-107); Estimated Creatinine Clearance 67 ml/min; Glucose 86 mg/dl (70-99); Magnesium 2.0 mg/dl (1.6-2.3); Potassium 4.3 mmol/L (3.5-5.1); Sodium 135 mmol/L (135-145); eGFR > 60.00
[2025-04-12 06:04] LABS: TSH 2.28 uIU/ml (0.47-4.68)
--- NOTE | 2025-04-12 07:30 | W.PN.HOSP.TC ---
Today's Communication/Plan
-
Patient is no longer hyponatremic with a value of 135
Continue IV fluid support as the patient's oral intake is poor
Brain MRI ordered
Assessment / Plan
Assessment / Plan
HPI: Patient is a 69-year-old woman with essential hypertension, dyslipidemia, GERD, bilateral carotid stenosis, atrial tachycardia, history of SIADH, history of vasovagal syncope who was recently admitted for COVID infection and hyponatremia who
presented with weakness and lightheadedness to [facility]. The day prior to her presentation to the emergency department she reported that she woke up in her usual state of health but around breakfast time she reported that when she bent her head and
looked up she felt dizzy and lightheaded. She also felt nauseous but did not vomit at that time. The sensation resolved after a few minutes but later came back and remained persistent. She stated that she had some trouble walking during that time
due to sensation of lightheadedness. She did not have any spinning or vision changes. She did not have any further nausea or vomiting. She denied having any headache. She denied having any numbness or weakness in her upper or lower extremities.
She did not have any palpitations, orthopnea, PND, or dyspnea on exertion. No recent episode of diarrhea. She denied having fevers or chills. She measured her blood pressure at home and it was in the 150 systolic. Due to his sensation of
lightheadedness she came to the emergency department because she felt that her sodium may have dropped again. Her prior admission had a sodium level of 121. In the emergency department she was afebrile with a temp of 98.2, blood pressure was
166/68, she had a pulse of 72, her oxygen saturation was 100% on room air. CT of the head was unremarkable. Sodium was 133 and the remainder of her chemistry panel was unremarkable. CBC was unremarkable. She received 1 L of normal saline in the
emergency department and remained lightheaded. She was admitted under observation to [facility] for weakness/lightheadedness and hyponatremia.
Assessment/Plan:
- Weakness/lightheadedness: Stable�monitoring
Etiology uncertain -patient currently admitted to observation
Continue IV fluid support
Zofran as as needed antiemetic
Follow orthostatics
TSH 2.28 on 04/12/2025 -within normal limits
PT OT eval and treat
Brain MRI ordered
-Hyponatremia: Resolving�monitoring
Patient had a sodium of 133 on 04/11/2025
Free water restriction to 1500 mL
Continue spironolactone
Sodium is 135 on 04/12/2025
-Essential hypertension:�Stable�monitoring
Continue home diltiazem
Continue aspirin 81 mg
-Hyperlipidemia: Stable-chronic
Continue atorvastatin 80 mg
FULL CODE STATUS
DVT Prophylaxis: SCDs
Imaging:
- CT scan of the head conducted on 04/11/2025:
No acute intracranial abnormality noted
Procedures: Not applicable
Anticipated Discharge: 24 - 48 hours
Subjective/Interval History
-
Date of Service: April 12, 2025
Met with patient at the bedside. She continues to have nausea but has not vomited today. Her appetite is greatly reduced. She tried to eat breakfast this morning but unfortunately in the moment she started to eat her appetite tapered off and the
nausea started again. She has a headache that is localized to her left frontal region and radiates to her left parietal region.
Objective Data
-
Labs:
Laboratory Results
04/12/25
05:02
Sodium 135
Potassium 4.3
Chloride 107
Carbon Dioxide 21 L
BUN 10
Creatinine 0.5 L
Glucose 86
Calcium 9.7
Labs
04/11/25 18:59
04/12/25 05:02
Vital Signs:
Vital Signs
Temp Pulse Resp BP Pulse Ox
98.1 F 71 12 144/64 99
04/11/25 23:00 04/12/25 06:00 04/12/25 06:00 04/12/25 06:00 04/12/25 02:00
Review of Systems
-
History Source: Patient
Constitutional: Reports Fatigue
EENT: Reports No Symptoms Reported
Respiratory: Reports No Symptoms
Cardiac: Reports No Symptoms
Abdomen/GI: Reports Nausea
Breast: Reports No Symptoms
Genitourinary: Reports No Symptoms
Musculoskeletal: Reports No Symptoms
Skin: Reports No Symptoms
Neuro: Reports Headache
Endocrine: Reports No Symptoms
Hematologic / Lymphatic: Reports No Symptoms
Allergy / Immunology: Reports No Symptoms
Physical Exam
-
General: Well Developed, Well Nourished, No Apparent Distress and Other (Nausea)
HEENT: Normocephalic, Atraumatic and Moist Mucous Membranes
Respiratory: Clear to Auscultation; Negative Wheezes, Rales, Rhonchi or Crackles
Cardiac: S1/S2, Murmur and Rub; Negative JVD or HJR
Breast: Deferred by me
GI: Soft, Nontender, Nondistended and Normal Bowel Sounds
Rectal: Deferred by Provider
Genito-urinary: Deferred by me
Musculoskeletal: No Clubbing, No Cyanosis and No Edema
Skin: Warm, Dry and Normal Turgor; Negative Rash, Ulcers or Lesions
Neuro: Awake, Alert, Oriented and AO x 3
Psych: Calm
--- NOTE | 2025-04-12 07:57 | EDRN ---
Patient taken to room 329-1 with NSS infusing by diagnostic technologist.
[2025-04-12] MEDS: COLACE 100 MG PO ×2 (08:22→21:28)
[2025-04-12] MEDS: FOLVITE 0.4 MG PO (08:22)
[2025-04-12] MEDS: ALDACTONE 25 MG PO (08:22)
[2025-04-12] MEDS: CARDIZEM CD 180 MG PO (08:22)
--- NOTE | 2025-04-12 09:09 | CM ---
CM met with patient this am to complete IA. Val lives alone in 2 story home, 2 JUNG, first floor powder room, full flight of steps to second floor bedroom and full bath.
Pt reports independence in ADLs, personal care and ambulation at baseline; does not need assistive device but does have cane in home.
No hx VN/SNF
PCP: Portia Espino
Pharmacy: [facility]
[2025-04-12] MEDS: VITAMIN D3 (cholecalciferol) 50 MCG PO (10:51)
[2025-04-12] MEDS: TYLENOL 650 MG PO ×2 (11:11→16:33)
--- NOTE | 2025-04-12 12:23 | CM ---
STEVE met with Val to complete IA. She lives alone in 2 story home, 2 JUNG, first floor half BA, full flight of steps to second floor BR/full BA.
Independent in ADLs, personal care and ambulation at baseline. does not need assistive device but does have cane in home.
No hx VN/SNF
Anticipate discharge home: watch for needs.
PCP: Portia Espino
Pharmacy: [facility]
[2025-04-12] MEDS: LIPITOR 80 MG PO (21:28)
[2025-04-12] MEDS: ASPIR LOW (ENTERIC COATED) 81 MG PO (21:28)
[2025-04-13] VITALS (8 sets, daily range): BP systolic 86–163; BP diastolic 57–81; PULSE 82–87
--- NOTE | 2025-04-13 02:24 | DOWNTIME ---
There was a [employer] Client High Lighter Downtime on 04/13/2025 from 0100 to 04/13/2025 at 0220. Downtime documentation of patient's care, including medication administrations, has been reconciled in the electronic record per guidelines. Refer to the
patient's paper chart under the miscellaneous tab to see printed paper medication records and downtime forms.
--- NOTE | 2025-04-13 07:30 | W.PN.HOSP.TC ---
Today's Communication/Plan
-
Nausea and discomfort continue this morning
Discontinued spironolactone to assess hemodynamics and if that may improve the symptoms of the patient
Will wean down and discontinue IV fluids as oral intake increases.
Assessment / Plan
Assessment / Plan
HPI: Patient is a 69-year-old woman with essential hypertension, dyslipidemia, GERD, bilateral carotid stenosis, atrial tachycardia, history of SIADH, history of vasovagal syncope who was recently admitted for COVID infection and hyponatremia who
presented with weakness and lightheadedness to [facility]. The day prior to her presentation to the emergency department she reported that she woke up in her usual state of health but around breakfast time she reported that when she bent her head and
looked up she felt dizzy and lightheaded. She also felt nauseous but did not vomit at that time. The sensation resolved after a few minutes but later came back and remained persistent. She stated that she had some trouble walking during that time
due to sensation of lightheadedness. She did not have any spinning or vision changes. She did not have any further nausea or vomiting. She denied having any headache. She denied having any numbness or weakness in her upper or lower extremities.
She did not have any palpitations, orthopnea, PND, or dyspnea on exertion. No recent episode of diarrhea. She denied having fevers or chills. She measured her blood pressure at home and it was in the 150 systolic. Due to his sensation of
lightheadedness she came to the emergency department because she felt that her sodium may have dropped again. Her prior admission had a sodium level of 121. In the emergency department she was afebrile with a temp of 98.2, blood pressure was
166/68, she had a pulse of 72, her oxygen saturation was 100% on room air. CT of the head was unremarkable. Sodium was 133 and the remainder of her chemistry panel was unremarkable. CBC was unremarkable. She received 1 L of normal saline in the
emergency department and remained lightheaded. She was admitted under observation to [facility] for weakness/lightheadedness and hyponatremia.
Assessment/Plan:
- Weakness/lightheadedness: Stable�monitoring
Etiology uncertain -patient currently admitted to observation
Continue IV fluid support
Zofran as as needed antiemetic
Follow orthostatics
TSH 2.28 on 04/12/2025 -within normal limits
PT OT eval and treat
Brain MRI unremarkable
Discontinued spironolactone -patient's ongoing symptoms regarding hypotension may be due to excessive diuresis. Will assess hemodynamics following discontinuation of this medication and we will see if symptoms improve.
-Hyponatremia: Resolving�monitoring
Patient had a sodium of 133 on 04/11/2025
Free water restriction to 1500 mL
Continue spironolactone
Sodium is 135 on 04/12/2025
-Essential hypertension:�Stable�monitoring
Continue home diltiazem
Continue aspirin 81 mg
-Hyperlipidemia: Stable-chronic
Continue atorvastatin 80 mg
FULL CODE STATUS
DVT Prophylaxis: SCDs
Imaging:
- CT scan of the head conducted on 04/11/2025:
No acute intracranial abnormality noted
-Brain MRI conducted on 04/12/2025:
1. No MRI evidence for acute infarct or intracranial hemorrhage.
2. Mild white matter leukoaraiosis in the frontal lobes.
3. Mild diffuse cerebral and cerebellar volume loss.
4. Mild paranasal sinus mucosal disease.
5. Moderate-sized central disc herniation and severe right-sided facet joint arthrosis at C3/C4 causing moderate spinal cord compression and central canal stenosis.
6. Severe discogenic degenerative disease at C5/C6 with a small disc herniation causing mild spinal cord compression.
7. 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
Procedures: Not applicable
Anticipated Discharge: 24 - 48 hours
Subjective/Interval History
-
Date of Service: April 13, 2025
Met with patient at the bedside. Overall she is stable but still not improving. She continues to have bouts of nausea shortly after starting her food. This greatly affects her appetite and she has no longer any interest to continue eating after
the nausea starts. Her last bowel movement was last night. She continues to pass gas normally. Her nausea did not incite vomiting. She also stated that her chest felt tight but did not have any pain and she stated that 'maybe it is anxiety I do
not think it is a heart attack.'
Objective Data
-
Labs:
Labs
04/13/25 08:48
04/13/25 08:48
Vital Signs:
Vital Signs
Temp Pulse Resp BP Pulse Ox
98.4 F 81 16 86/61 98
04/13/25 07:00 04/13/25 07:00 04/13/25 07:00 04/13/25 07:00 04/13/25 07:00
I&O
04/12/25 04/13/25 04/14/25
06:59 06:59 06:59
Intake Total 360 / 360
Balance 360 / 360
Review of Systems
-
History Source: Patient
Constitutional: Reports No Symptoms and Not Done
Respiratory: Reports No Symptoms
Cardiac: Reports No Symptoms
Abdomen/GI: Reports Abdominal Pain (Shortly after eating) and Nausea (Shortly after eating food)
Breast: Reports No Symptoms
Genitourinary: Reports No Symptoms
Musculoskeletal: Reports No Symptoms
Skin: Reports No Symptoms
Neuro: Reports No Symptoms
Endocrine: Reports No Symptoms
Hematologic / Lymphatic: Reports No Symptoms
Physical Exam
-
General: Well Developed
HEENT: Normocephalic and Atraumatic
Respiratory: Clear to Auscultation
Cardiac: Regular Rhythm and S1/S2
Breast: Deferred by me
GI: Soft, Nontender and Nondistended
Rectal: Deferred by Provider
Genito-urinary: Deferred by me
Musculoskeletal: No Clubbing, No Cyanosis and No Edema
Skin: Warm and Dry; Negative Rash, Ulcers or Lesions
Neuro: Awake, Alert, Oriented and AO x 3
Psych: Calm
[2025-04-13 09:11] LABS: Hematocrit 34.0 % (37.0-47.0); Hemoglobin 11.7 g/dL (12.0-16.0); Mean Corp Hgb Conc. 34.4 g/dL (33.0-37.0); Mean Corpuscular Volume 88.3 fL (81.0-99.0); Platelet Count 337 10^3/uL (130-400); Red Cell Dist. Width 13.2 % (11.5-14.5)
[2025-04-13 09:21] LABS: ALT (SGPT) 19 U/L (0-35); AST (SGOT) 19 U/L (14-36); Albumin 4.1 g/dl (3.5-5.0); Alkaline Phosphatase 91 U/L (38-126); Blood Urea Nitrogen 11 mg/dl (7-17); Calcium 9.1 mg/dl (8.4-10.2); Carbon Dioxide 25 mmol/L (22-30); Chloride 104 mmol/L (98-107); Estimated Creatinine Clearance 67 ml/min; Glucose 98 mg/dl (70-99); Potassium 4.0 mmol/L (3.5-5.1); Sodium 134 mmol/L (135-145); Total Protein 6.4 g/dl (6.3-8.2); eGFR > 60.00
[2025-04-13] MEDS: CARDIZEM CD 180 MG PO (11:34)
[2025-04-13] MEDS: VITAMIN D3 (cholecalciferol) 50 MCG PO (11:34)
[2025-04-13] MEDS: COLACE 100 MG PO ×2 (11:34→21:03)
[2025-04-13] MEDS: FOLVITE 0.4 MG PO (11:34)
[2025-04-13] MEDS: ALDACTONE PO (12:18)
--- NOTE | 2025-04-13 14:16 | CM ---
Addendum entered by Ciara Oconnell 04/13/25 14:21:
TT to Dr. Barger to request Rx or CM consult for outpatient PT.
Original Note:
Pt evaluated by PT with recommendation for discharge to home with outpatient PT follow up.
--- NOTE | 2025-04-13 14:25 | PTOTSP ---
pt currently requires supervision to no assistance to complete simple ADLs, functional transfers, ambulation. no overt deficits noted regarding functional ability. no acute OT needs identified at this time, will sign off.
[2025-04-13] MEDS: NSS 1000 IV (18:50)
[2025-04-13] MEDS: LIPITOR 80 MG PO (21:04)
[2025-04-13] MEDS: ASPIR LOW (ENTERIC COATED) 81 MG PO (21:04)
[2025-04-14] VITALS (7 sets, daily range): BP systolic 107–152; BP diastolic 48–75; PULSE 79–83
[2025-04-14] MEDS: TYLENOL 650 MG PO (02:40)
--- NOTE | 2025-04-14 07:30 | W.PN.HOSP.TC ---
Today's Communication/Plan
-
Patient continues to have reduced appetite and nausea. She has not vomited
Abdominal x-ray ordered for further evaluation
CT angio of the abdomen ordered for postprandial abdominal pain
Patient does not report any lightheadedness today but is primarily concerned with her abdominal issues -will try Maalox
Assessment / Plan
Assessment / Plan
HPI: Patient is a 69-year-old woman with essential hypertension, dyslipidemia, GERD, bilateral carotid stenosis, atrial tachycardia, history of SIADH, history of vasovagal syncope who was recently admitted for COVID infection and hyponatremia who
presented with weakness and lightheadedness to [facility]. The day prior to her presentation to the emergency department she reported that she woke up in her usual state of health but around breakfast time she reported that when she bent her head and
looked up she felt dizzy and lightheaded. She also felt nauseous but did not vomit at that time. The sensation resolved after a few minutes but later came back and remained persistent. She stated that she had some trouble walking during that time
due to sensation of lightheadedness. She did not have any spinning or vision changes. She did not have any further nausea or vomiting. She denied having any headache. She denied having any numbness or weakness in her upper or lower extremities.
She did not have any palpitations, orthopnea, PND, or dyspnea on exertion. No recent episode of diarrhea. She denied having fevers or chills. She measured her blood pressure at home and it was in the 150 systolic. Due to his sensation of
lightheadedness she came to the emergency department because she felt that her sodium may have dropped again. Her prior admission had a sodium level of 121. In the emergency department she was afebrile with a temp of 98.2, blood pressure was
166/68, she had a pulse of 72, her oxygen saturation was 100% on room air. CT of the head was unremarkable. Sodium was 133 and the remainder of her chemistry panel was unremarkable. CBC was unremarkable. She received 1 L of normal saline in the
emergency department and remained lightheaded. She was admitted under observation to [facility] for weakness/lightheadedness and hyponatremia.
Assessment/Plan:
- Weakness/lightheadedness: Stable�monitoring
Etiology uncertain -patient currently admitted to observation
Continue IV fluid support
Zofran as as needed antiemetic
Follow orthostatics
TSH 2.28 on 04/12/2025 -within normal limits
PT OT eval and treat
Brain MRI unremarkable
Discontinued spironolactone -patient's ongoing symptoms regarding hypotension may be due to excessive diuresis. Will assess hemodynamics following discontinuation of this medication and we will see if symptoms improve.
-Hyponatremia: Resolving�monitoring
Patient had a sodium of 133 on 04/11/2025
Free water restriction to 1500 mL
Continue spironolactone
Sodium is 135 on 04/12/2025
-Essential hypertension:�Stable�monitoring
Continue home diltiazem
Continue aspirin 81 mg
-Hyperlipidemia: Stable-chronic
Continue atorvastatin 80 mg
-Abdominal bloating/constipation: Stable�monitoring
Patient mentions reduced stools and frequent constipation. She had small amount of bowel movement in the evening of 04/13/2025 and another small tablespoon sized bowel movement on 04/14/2025
Abdominal x-ray ordered
Maalox added
FULL CODE STATUS
DVT Prophylaxis: SCDs
Imaging:
- CT scan of the head conducted on 04/11/2025:
No acute intracranial abnormality noted
-Brain MRI conducted on 04/12/2025:
1. No MRI evidence for acute infarct or intracranial hemorrhage.
2. Mild white matter leukoaraiosis in the frontal lobes.
3. Mild diffuse cerebral and cerebellar volume loss.
4. Mild paranasal sinus mucosal disease.
5. Moderate-sized central disc herniation and severe right-sided facet joint arthrosis at C3/C4 causing moderate spinal cord compression and central canal stenosis.
6. Severe discogenic degenerative disease at C5/C6 with a small disc herniation causing mild spinal cord compression.
7. 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
Procedures: Not applicable
Anticipated Discharge: Within 24 hours
Subjective/Interval History
-
Date of Service: April 14, 2025
Met with patient at the bedside. She continues to state that she is not doing well and is not seeing any signs of improvement. She does not feel like the medication adjustments we have made have changed her current symptoms. She continues to feel
bloated and has pain along her diaphragm. Frequent burping and only had a small spoon sized amount of stool. She states that she is able to pass gas but at times passing gas is painful. She tried to eat food and states that her food intake has
increased since yesterday. Despite the increase in food intake her bowel movements have not improved.
Objective Data
-
Labs:
Laboratory Results
04/14/25
08:28
WBC 7.4
Hgb 11.6 L
Hct 34.0 L
Plt Count 313
Sodium 135
Potassium 4.2
Chloride 105
Carbon Dioxide 24
BUN 11
Creatinine 0.6
Glucose 91
Calcium 9.2
Total Bilirubin 1.0
AST 19
ALT 17
Alkaline Phosphatase 85
Vital Signs:
Vital Signs
Temp Pulse Resp BP Pulse Ox
97.7 F 78 18 142/73 98
04/14/25 07:25 04/14/25 07:25 04/14/25 07:25 04/14/25 07:25 04/14/25 07:25
I&O
04/13/25 04/14/25 04/15/25
06:59 06:59 06:59
Intake Total 360 / 360 1000 / 1000 480 / 480
Balance 360 / 360 1000 / 1000 480 / 480
Review of Systems
-
History Source: Patient
All other systems: Reviewed and negative
Constitutional: Reports No Symptoms
EENT: Reports No Symptoms Reported
Respiratory: Reports No Symptoms
Cardiac: Reports No Symptoms
Abdomen/GI: Reports Nausea, Constipated, Bloated and Other (Burpy)
Breast: Reports No Symptoms
Genitourinary: Reports No Symptoms
Musculoskeletal: Reports No Symptoms
Skin: Reports No Symptoms
Neuro: Reports No Symptoms
Endocrine: Reports No Symptoms
Hematologic / Lymphatic: Reports No Symptoms
Physical Exam
-
General: Well Developed, Well Nourished and No Apparent Distress
HEENT: Normocephalic and Atraumatic
Respiratory: Clear to Auscultation
Cardiac: Regular Rhythm and S1/S2
GI: Soft, Nontender, Normal Bowel Sounds and Other (Slightly bloated)
Rectal: Deferred by Provider
Genito-urinary: Deferred by me
Musculoskeletal: No Clubbing, No Cyanosis and No Edema
Skin: Warm, Dry and Normal Turgor; Negative Rash, Ulcers or Lesions
Neuro: Awake, Alert, Oriented and AO x 3
Psych: Calm
[2025-04-14] MEDS: VITAMIN D3 (cholecalciferol) 50 MCG PO (08:57)
[2025-04-14] MEDS: COLACE 100 MG PO ×2 (08:57→20:01)
[2025-04-14] MEDS: CARDIZEM CD 180 MG PO (08:57)
[2025-04-14 08:58] LABS: Hematocrit 34.0 % (37.0-47.0); Hemoglobin 11.6 g/dL (12.0-16.0); Mean Corp Hgb Conc. 34.1 g/dL (33.0-37.0); Mean Corpuscular Volume 88.3 fL (81.0-99.0); Platelet Count 313 10^3/uL (130-400); Red Cell Dist. Width 13.2 % (11.5-14.5)
[2025-04-14 09:35] LABS: ALT (SGPT) 17 U/L (0-35); AST (SGOT) 19 U/L (14-36); Albumin 3.9 g/dl (3.5-5.0); Alkaline Phosphatase 85 U/L (38-126); Blood Urea Nitrogen 11 mg/dl (7-17); Calcium 9.2 mg/dl (8.4-10.2); Carbon Dioxide 24 mmol/L (22-30); Chloride 105 mmol/L (98-107); Estimated Creatinine Clearance 67 ml/min; Glucose 91 mg/dl (70-99); Potassium 4.2 mmol/L (3.5-5.1); Sodium 135 mmol/L (135-145); Total Protein 6.2 g/dl (6.3-8.2); eGFR > 60.00
[2025-04-14] MEDS: FOLVITE 0.4 MG PO (10:34)
[2025-04-14 11:06] LABS: COVID-19 Antigen Negative (Negative)
[2025-04-14] MEDS: MAALOX 30 ML PO (11:29)
[2025-04-14] MEDS: MIRALAX 17 GRAMS PO (16:55)
--- NOTE | 2025-04-14 18:45 | PTCARENOTE ---
Communicated with Dr Barger regarding patients isolation status. Pt stated she was covid + over two weeks ago. Covid swab ordered with results: Negative. Received TT from Dr Barger stating that she can come off Respiratory Illness precautions.
Patient currently on Standard precautions.
[2025-04-14] MEDS: SENOKOT-S 1 TABLET PO (20:09)
[2025-04-14] MEDS: LIPITOR 80 MG PO (22:28)
[2025-04-14] MEDS: ASPIR LOW (ENTERIC COATED) 81 MG PO (22:28)
[2025-04-14] MEDS: HYDROCORTISONE 1% CREAM 1 APPLIC TOPICAL (22:28)
--- NOTE | 2025-04-15 01:46 | PTCARENOTE ---
pt reported feeling itchy. faint pink rash noted on abdomen and a few spots on back. pt washed w/ w/ bathing clothes. obtained yhpoallergenic sheets and gown. s/w tucker Peterson obtained cream. pt later stated that everything helped. rash still present
will monitor.
--- NOTE | 2025-04-15 07:30 | W.PN.HOSP.TC ---
Today's Communication/Plan
-
Patient appears to be at her baseline and hopes to be discharged in the near future
Will move forward with discharge planning
Assessment / Plan
Assessment / Plan
HPI: Patient is a 69-year-old woman with essential hypertension, dyslipidemia, GERD, bilateral carotid stenosis, atrial tachycardia, history of SIADH, history of vasovagal syncope who was recently admitted for COVID infection and hyponatremia who
presented with weakness and lightheadedness to [facility]. The day prior to her presentation to the emergency department she reported that she woke up in her usual state of health but around breakfast time she reported that when she bent her head and
looked up she felt dizzy and lightheaded. She also felt nauseous but did not vomit at that time. The sensation resolved after a few minutes but later came back and remained persistent. She stated that she had some trouble walking during that time
due to sensation of lightheadedness. She did not have any spinning or vision changes. She did not have any further nausea or vomiting. She denied having any headache. She denied having any numbness or weakness in her upper or lower extremities.
She did not have any palpitations, orthopnea, PND, or dyspnea on exertion. No recent episode of diarrhea. She denied having fevers or chills. She measured her blood pressure at home and it was in the 150 systolic. Due to his sensation of
lightheadedness she came to the emergency department because she felt that her sodium may have dropped again. Her prior admission had a sodium level of 121. In the emergency department she was afebrile with a temp of 98.2, blood pressure was
166/68, she had a pulse of 72, her oxygen saturation was 100% on room air. CT of the head was unremarkable. Sodium was 133 and the remainder of her chemistry panel was unremarkable. CBC was unremarkable. She received 1 L of normal saline in the
emergency department and remained lightheaded. She was admitted under observation to [facility] for weakness/lightheadedness and hyponatremia.
Assessment/Plan:
- Weakness/lightheadedness: Stable�monitoring
Etiology uncertain -patient currently admitted to observation
Continue IV fluid support
Zofran as as needed antiemetic
Follow orthostatics
TSH 2.28 on 04/12/2025 -within normal limits
PT OT eval and treat
Brain MRI unremarkable
Discontinued spironolactone -patient's ongoing symptoms regarding hypotension may be due to excessive diuresis. Will assess hemodynamics following discontinuation of this medication and we will see if symptoms improve.
-Hyponatremia: Resolving�monitoring
Patient had a sodium of 133 on 04/11/2025
Free water restriction to 1500 mL
Continue spironolactone
Sodium is 135 on 04/12/2025
-Essential hypertension:�Stable�monitoring
Continue home diltiazem
Continue aspirin 81 mg
-Hyperlipidemia: Stable-chronic
Continue atorvastatin 80 mg
-Abdominal bloating/constipation: Stable�monitoring
Patient mentions reduced stools and frequent constipation. She had small amount of bowel movement in the evening of 04/13/2025 and another small tablespoon sized bowel movement on 04/14/2025
Abdominal/pelvis CT angio showed no acute processes occurring.
Maalox added
- History of SIADH: Stable�monitoring
On prior admission patient was hyponatremic with a sodium of 121, chloride of 91, serum osmolality of 261, urine osmolality of 273, and urine sodium of 29
Patient should remain on a water restriction on discharge�to be adjusted if warranted by her primary care provider after follow-up in the outpatient
Spironolactone was held due to low blood pressure and orthostatic symptoms.
FULL CODE STATUS
DVT Prophylaxis: SCDs
Imaging:
- CT scan of the head conducted on 04/11/2025:
No acute intracranial abnormality noted
-Brain MRI conducted on 04/12/2025:
1. No MRI evidence for acute infarct or intracranial hemorrhage.
2. Mild white matter leukoaraiosis in the frontal lobes.
3. Mild diffuse cerebral and cerebellar volume loss.
4. Mild paranasal sinus mucosal disease.
5. Moderate-sized central disc herniation and severe right-sided facet joint arthrosis at C3/C4 causing moderate spinal cord compression and central canal stenosis.
6. Severe discogenic degenerative disease at C5/C6 with a small disc herniation causing mild spinal cord compression.
7. 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
-Abdominal/pelvis CT angiography conducted on 04/14/2025:
Moderate atherosclerotic vascular disease as described above. Stable
Bilateral too small to characterize hypodense renal lesions likely benign cysts. Stable
Moderate fecal material throughout the colon. Progressed
Procedures: Not applicable
Anticipated Discharge: Within 24 hours
Subjective/Interval History
-
Date of Service: April 15, 2025
Patient states that she is doing much better and is hoping to be discharged today if she is able to have a bowel movement. Spoke to her about how to manage her increasingly slower bowel movements as she gets older. Discussed how a bowel regimen in
the outpatient setting it may be helpful and that she may need to balance the use of stool softeners along with fiber if needed. She also stated that her fluid intake helps with her bowel movements and since her fluid restriction was started at her
last hospital admit she is not is used to managing her constipation.
Objective Data
-
Labs:
Laboratory Results
04/15/25
07:58
WBC 9.7
Hgb 11.6 L
Hct 33.0 L
Plt Count 333
Sodium 133 L
Potassium 4.4
Chloride 102
Carbon Dioxide 27
BUN 10
Creatinine 0.6
Glucose 98
Calcium 9.4
Total Bilirubin 0.9
AST 19
ALT 17
Alkaline Phosphatase 83
Vital Signs:
Vital Signs
Temp Pulse Resp BP Pulse Ox
98.9 F 72 14 147/65 99
04/15/25 08:07 04/15/25 08:28 04/15/25 08:07 04/15/25 08:28 04/15/25 08:07
I&O
04/14/25 04/15/25 04/16/25
06:59 06:59 06:59
Intake Total 1000 / 1000 1680 / 1680 240 / 240
Balance 1000 / 1000 1680 / 1680 240 / 240
Review of Systems
-
History Source: Patient
All other systems: Reviewed and negative
Constitutional: Reports No Symptoms
EENT: Reports No Symptoms Reported
Respiratory: Reports No Symptoms
Cardiac: Reports No Symptoms
Abdomen/GI: Reports Constipated
Breast: Reports No Symptoms
Genitourinary: Reports No Symptoms
Musculoskeletal: Reports No Symptoms
Skin: Reports No Symptoms
Neuro: Reports No Symptoms
Endocrine: Reports No Symptoms
Hematologic / Lymphatic: Reports No Symptoms
Physical Exam
-
General: Well Developed, Well Nourished and No Apparent Distress
HEENT: Normocephalic and Atraumatic
Respiratory: Clear to Auscultation; Negative Wheezes, Rales, Rhonchi or Crackles
Cardiac: S1/S2; Negative Murmur or Rub
Breast: Deferred by me
GI: Soft, Nontender, Nondistended and Normal Bowel Sounds
Rectal: Deferred by Provider
Genito-urinary: Deferred by me
Musculoskeletal: No Clubbing, No Cyanosis and No Edema
Skin: Warm and Dry
Neuro: Awake, Alert, Oriented and AO x 3
Psych: Calm
[2025-04-15 08:07] VITALS: BP 147/65
[2025-04-15 08:17] LABS: Hematocrit 33.0 % (37.0-47.0); Hemoglobin 11.6 g/dL (12.0-16.0); Mean Corp Hgb Conc. 35.2 g/dL (33.0-37.0); Mean Corpuscular Volume 85.1 fL (81.0-99.0); Platelet Count 333 10^3/uL (130-400); Red Cell Dist. Width 13.1 % (11.5-14.5)
[2025-04-15] MEDS: COLACE 100 MG PO (08:28)
[2025-04-15] MEDS: VITAMIN D3 (cholecalciferol) 50 MCG PO (08:28)
[2025-04-15] MEDS: FOLVITE 0.4 MG PO (08:28)
[2025-04-15] MEDS: CARDIZEM CD 180 MG PO (08:28)
[2025-04-15] MEDS: HYDROCORTISONE 1% CREAM 1 APPLIC TOPICAL (08:34)
[2025-04-15] MEDS: MIRALAX 17 GRAMS PO (08:34)
[2025-04-15 08:44] LABS: ALT (SGPT) 17 U/L (0-35); AST (SGOT) 19 U/L (14-36); Albumin 4.0 g/dl (3.5-5.0); Alkaline Phosphatase 83 U/L (38-126); Blood Urea Nitrogen 10 mg/dl (7-17); Calcium 9.4 mg/dl (8.4-10.2); Carbon Dioxide 27 mmol/L (22-30); Chloride 102 mmol/L (98-107); Estimated Creatinine Clearance 67 ml/min; Glucose 98 mg/dl (70-99); Potassium 4.4 mmol/L (3.5-5.1); Sodium 133 mmol/L (135-145); Total Protein 6.3 g/dl (6.3-8.2); eGFR > 60.00
[2025-04-15 09:47] LABS: HDL Cholesterol 51 mg/dl; LDL Cholesterol, Calculated 60 mg/dl; Very Low Density Lipoprotein 15 mg/dl (0-30)
[2025-04-15] MEDS: TYLENOL 650 MG PO (11:41)
--- NOTE | 2025-04-15 13:47 | CM ---
Pt discharge to home. No needs at this time; pt will consider outpatient therapy as recommended previously, but not sure if she will need it.
Plan: Discharge to home with no needs.
PCP: Portia Espino
[facility]
[2025-04-15] MEDS: DULCOLAX 10 MG RECTAL (14:57)
[2025-04-15 15:00] VITALS: BP 148/60
--- NOTE | 2025-04-15 18:06 | W.DCSUMMARY ---
Documented by User: Kodak Barger MD, Resident 04/15/25 18:20
Discharge Summary
Discharge Data
Date of Admission: 04/15/25
Date of Discharge: 04/15/25
-
Pending Results: No
Hospital Course
Discharging Physician : Levy Moya DO
Disposition : Home
Primary care physician : Portia Torres DO
Principal Discharge diagnosis : Suspected chronic mesenteric ischemia
Chronic Discharge diagnosis :
Hyperlipidemia
Vitamin D deficiency
Essential hypertension
Syndrome of apparent mineralocorticoid excess
Raynaud's syndrome
GERD
Bilateral carotid stenosis
Atrial tachycardia
Osteoporosis
History of SIADH
History of vasovagal syncope
Hospital Course : Patient is a 69-year-old woman with essential hypertension, dyslipidemia, GERD, bilateral carotid stenosis, atrial tachycardia, history of SIADH, history of vasovagal syncope who was recently admitted for COVID infection and
hyponatremia who presented with weakness and lightheadedness to [facility]. The day prior to her presentation to the emergency department she reported that she woke up in her usual state of health but around breakfast time she reported that when she bent
her head and looked up she felt dizzy and lightheaded. She also felt nauseous but did not vomit at that time. The sensation resolved after a few minutes but later came back and remained persistent. She stated that she had some trouble walking
during that time due to sensation of lightheadedness. She did not have any spinning or vision changes. She did not have any further nausea or vomiting. She denied having any headache. She denied having any numbness or weakness in her upper or
lower extremities. She did not have any palpitations, orthopnea, PND, or dyspnea on exertion. No recent episode of diarrhea. She denied having fevers or chills. She measured her blood pressure at home and it was in the 150 systolic. Due to his
sensation of lightheadedness she came to the emergency department because she felt that her sodium may have dropped again. Her prior admission had a sodium level of 121. In the emergency department she was afebrile with a temp of 98.2, blood
pressure was 166/68, she had a pulse of 72, her oxygen saturation was 100% on room air. CT of the head was unremarkable. Sodium was 133 and the remainder of her chemistry panel was unremarkable. CBC was unremarkable. She received 1 L of normal
saline in the emergency department and remained lightheaded. She was admitted under observation to [facility] for weakness/lightheadedness and hyponatremia.
Patient was started on IV fluids and was given Zofran as an antiemetic. Orthostatics were followed. Brain MRI was ordered which showed no evidence of acute infarct or intracranial hemorrhage. Patient continued to feel dizzy and have symptoms of
hypotension on her 25 mg of spironolactone. Her spironolactone was discontinued and her dizziness subsided. Unfortunately she was constipated and contributed that to her decreased fluid intake. During her episodes of hypotension when she was
eating she also began to have abdominal pain which suppressed her appetite and reduced her intake. On auscultation a bruit was heard on the left at the patient's umbilicus. CT angio of the abdomen was ordered for postprandial abdominal pain. CT
angio of the abdomen and pelvis showed signs of ASCVD within the superior mesenteric artery and possibly celiac as well. The image findings along with physical exam indicates high suspicion of mesenteric ischemia likely likely exacerbated from
Aldactone. Patient's LDL was found to be 60. Ezetimibe was added for an LDL goal less than 55 due to evidence of ongoing ASCVD despite LDL being at goal. The patient was encouraged to consume small and more frequent meals to limit her symptoms.
Patient was also connected with vascular surgery and appointment was made to be followed up with Dr. Mccarthy after discharge for consideration of stenting and monitoring of her bilateral carotid stenosis. Patient will be discharged off of
spironolactone and is recommended to repeat a BMP within 1 week to ensure potassium is stable. Patient will be discharged on a short course of senna and MiraLAX due to ongoing constipation. Patient believes that she is ready for discharge and
would like to be discharged at the present time.
The patient has reached maximal benefit from this hospital admission and the patient is appropriate for discharge at the present time. There are no barriers that would impede the patient from being discharged from the hospital at the present time.
The patient should follow-up with their primary care provider within 1 week following discharge. Patient is scheduled to be followed up with Dr. Mccarthy at vascular surgery after discharge.
Important imaging findings :
- CT scan of the head conducted on 04/11/2025:
No acute intracranial abnormality noted
-Brain MRI conducted on 04/12/2025:
1. No MRI evidence for acute infarct or intracranial hemorrhage.
2. Mild white matter leukoaraiosis in the frontal lobes.
3. Mild diffuse cerebral and cerebellar volume loss.
4. Mild paranasal sinus mucosal disease.
5. Moderate-sized central disc herniation and severe right-sided facet joint arthrosis at C3/C4 causing moderate spinal cord compression and central canal stenosis.
6. Severe discogenic degenerative disease at C5/C6 with a small disc herniation causing mild spinal cord compression.
7. 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
-Abdominal/pelvis CT angiography conducted on 04/14/2025:
EXAMINATION: CT of the abdomen and pelvis pre- and post-IV contrast both.
INDICATION: Postprandial abdominal pain
TECHNIQUE: Contiguous helical acquisition from the bases of the lungs through the pubic symphysis pre- and post-IV contrast. Automated dose reduction technique was utilized. Delayed imaging was performed. Axial reconstructions and sagittal and
coronal reformats provided.
COMPARISON: 03/13/2023.
FINDINGS: Pre-IV contrast imaging shows there is moderate atherosclerotic vascular disease. Postcontrast imaging shows there is severe calcification of the origin of the celiac axis. However, the vessel is well opacified. There is moderate
calcification along the superior right lateral aspect of the origin of the SMA. There is no stenosis of the SMA. The FARZANEH is patent. The renal arteries are patent. There is moderate calcified plaque of the origin of each. There is no aortic
dissection. There is no aortic aneurysm.
Lung Bases: There is mild fibrosis in the lung bases.
Bone: Osseous structures of the abdomen and pelvis show minimal degenerative disease.
Abdomen and pelvis: The liver, spleen, gallbladder and pancreas are unremarkable. The adrenal glands and kidneys are unremarkable aside from bilateral too small to characterize hypodense renal lesions likely benign cysts... The abdominal aorta is
normal caliber. No significant lymphadenopathy is noted. Bowel loops are normal caliber. The terminal ileum and appendix are within normal limits. There is moderate fecal material throughout the colon.
No free fluid is noted. The urinary bladder is unremarkable.
Procedure findings : Not applicable
Discharge Plan
-
Patient Disposition: Home (Routine Discharge)
Discharge Diagnosis/Procedures: Suspected chronic mesenteric ischemia
Lightheadedness from hypotension
History of syndrome of apparent mineralocorticoid excess
Constipation
Condition: Fair
Diet: Other diet
Additional Diets: Small, frequent meals preferred to help limit symptoms of mesenteric ischemia
Activity: As tolerated
Driving Restrictions: As prior to admission
Blood Work: BMP 1 week after discharge from the hospital to recheck potassium levels
Others Tests: Follow-up with vascular surgery for possible carotid ultrasounds
Activity Restrictions/Additional Instructions:
Follow-up with your family doctor within 1 week of discharge from the hospital.
Referral provided below for vascular surgery. We spoke with them prior to your discharge and they will reach out to schedule office visit. If you do not hear with them in 1 week then you should give their office a call
Referrals:
Portia Torres DO [Family Provider, Family Practice] - in less than 1 week
Saleem Mccarthy III, MD [Active, Vascular Surgery] - 05/19/25 8:00 am
Referral Note: Follow up appointment with Dr Mccarthy at [place] on 05/19/25 at 10am
Additional Discharge Medication Instructions: Start ezetimibe 10 mg daily for cholesterol lowering effect
Continue MiraLAX and start as needed senna for constipation. If you have constipation despite both of these medications use a bisacodyl 10 mg suppository for constipation
Continue aspirin 81 mg daily and atorvastatin 80 mg nightly
Stop spironolactone
Prescriptions:
New
ezetimibe 10 mg Tablet
10 mg PO DAILY 30 Days Qty: 30 0RF
sennosides [senna] 8.6 mg tablet
8.6 mg PO BID PRN (Reason: Constipation) Qty: 30 0RF
bisacodyl 10 mg suppository
10 mg WA DAILY PRN (Reason: Constipation) Qty: 12 0RF
Continued
lutein 20 MG tablet
20 mg PO DAILY
diltiazem HCl 180 mg capsule,extended release 24hr
180 mg PO DAILY
aspirin 81 mg Tablet,Delayed Release (Dr/Ec)
81 mg PO HS
atorvastatin 80 mg Tablet
80 mg PO HS
clobetasol 0.05 % Cream
1 applic TOPICAL BID
Patient Comments:
04/14/2025, apply under B/L breasts and stomach rash.
folic acid 400 mcg Tablet
0.4 mg PO DAILY
acetaminophen [Tylenol Arthritis Pain] 650 mg Tablet Extended Release
1,300 mg PO Q8HPRN PRN (Reason: mild pain)
chlorhexidine gluconate 0.12 % Mouthwash
15 ml MUCOUS MEMBRANE .SEE BELOW
Patient Comments:
04/14/2025, pt. uses BID or TID per pt.; she is not sure for certain.
cholecalciferol (vitamin D3) 50 mcg (2,000 unit) Capsule
50 mcg PO DAILY
Benefiber (guar gum)
2 tsp PO DAILY
Changed
polyethylene glycol 3350 [Miralax] 17 gram Powder In Packet
17 g PO DAILY PRN (Reason: Constipation) Qty: 14 0RF
Discontinued
spironolactone 25 mg Tablet
25 mg PO DAILY
ibuprofen [Motrin IB] 200 mg Tablet
200 mg PO Q8HPRN PRN (Reason: mild pain)
docusate sodium 100 mg Capsule
100 mg PO DAILY
Discharge Orders:
Discharge Patient (As Directed); Ordered 04/15/25
Ordered By: Levy Moya
Discharge Date and Time
Discharge Date/Time: 04/15/25 18:49
Print Language: DOMINICAN

Documented by User: Levy Moya DO 04/16/25 11:34
Discharge Summary
Discharge Data
Date of Admission: 04/13/25
Date of Discharge: 04/15/25
Total time spent discharging patient (in min): 33
Discharge Plan
-
Patient Disposition: Home (Routine Discharge)
Discharge Diagnosis/Procedures: Suspected chronic mesenteric ischemia
Lightheadedness from hypotension
History of syndrome of apparent mineralocorticoid excess
Constipation
Condition: Fair
Diet: Other diet
Additional Diets: Small, frequent meals preferred to help limit symptoms of mesenteric ischemia
Activity: As tolerated
Driving Restrictions: As prior to admission
Blood Work: BMP 1 week after discharge from the hospital to recheck potassium levels
Others Tests: Follow-up with vascular surgery for possible carotid ultrasounds
Activity Restrictions/Additional Instructions:
Follow-up with your family doctor within 1 week of discharge from the hospital.
Referral provided below for vascular surgery. We spoke with them prior to your discharge and they will reach out to schedule office visit. If you do not hear with them in 1 week then you should give their office a call
Referrals:
Portia Torres DO [Family Provider, Family Practice] - in less than 1 week
Saleem Mccarthy III, MD [Active, Vascular Surgery] - 05/19/25 8:00 am
Referral Note: Follow up appointment with Dr Mccarthy at [place] on 8/27/25 at 10am
Additional Discharge Medication Instructions: Start ezetimibe 10 mg daily for cholesterol lowering effect
Continue MiraLAX and start as needed senna for constipation. If you have constipation despite both of these medications use a bisacodyl 10 mg suppository for constipation
Continue aspirin 81 mg daily and atorvastatin 80 mg nightly
Stop spironolactone
Prescriptions:
New
ezetimibe 10 mg Tablet
10 mg PO DAILY 30 Days Qty: 30 0RF
sennosides [senna] 8.6 mg tablet
8.6 mg PO BID PRN (Reason: Constipation) Qty: 30 0RF
bisacodyl 10 mg suppository
10 mg WA DAILY PRN (Reason: Constipation) Qty: 12 0RF
Continued
lutein 20 MG tablet
20 mg PO DAILY
diltiazem HCl 180 mg capsule,extended release 24hr
180 mg PO DAILY
aspirin 81 mg Tablet,Delayed Release (Dr/Ec)
81 mg PO HS
atorvastatin 80 mg Tablet
80 mg PO HS
clobetasol 0.05 % Cream
1 applic TOPICAL BID
Patient Comments:
04/14/2025, apply under B/L breasts and stomach rash.
folic acid 400 mcg Tablet
0.4 mg PO DAILY
acetaminophen [Tylenol Arthritis Pain] 650 mg Tablet Extended Release
1,300 mg PO Q8HPRN PRN (Reason: mild pain)
chlorhexidine gluconate 0.12 % Mouthwash
15 ml MUCOUS MEMBRANE .SEE BELOW
Patient Comments:
04/14/2025, pt. uses BID or TID per pt.; she is not sure for certain.
cholecalciferol (vitamin D3) 50 mcg (2,000 unit) Capsule
50 mcg PO DAILY
Benefiber (guar gum)
2 tsp PO DAILY
Changed
polyethylene glycol 3350 [Miralax] 17 gram Powder In Packet
17 g PO DAILY PRN (Reason: Constipation) Qty: 14 0RF
Discontinued
spironolactone 25 mg Tablet
25 mg PO DAILY
ibuprofen [Motrin IB] 200 mg Tablet
200 mg PO Q8HPRN PRN (Reason: mild pain)
docusate sodium 100 mg Capsule
100 mg PO DAILY
Discharge Orders:
Discharge Patient (As Directed); Ordered 04/15/25
Ordered By: Levy Moya
Discharge Date and Time
Discharge Date/Time: 04/15/25 18:49
Print Language: DOMINICAN
[2025-04-15 18:37] VITALS: BP 158/71
== END 2025-04-15 18:49 | disposition home or self-care (01) | DRG 394 ==
LOC: 3 WEST ACU 11:08
PROVIDERS: ADMITTING PHYSICIAN Internal Medicine; ATTENDING PHYSICIAN Internal Medicine; EMERGENCY PHYSICIAN Emergency Medicine; FAMILY PHYSICIAN Family Medicine
DX: K55.1 Chronic vascular disorders of intestine (principal); E22.2 Syndrome of inappropriate secretion of antidiuretic hormone; I47.19 Other supraventricular tachycardia; M50.022 Cervical disc disorder at C5-C6 level with myelopathy; E78.5 Hyperlipidemia, unspecified; I10 Essential (primary) hypertension; E55.9 Vitamin D deficiency, unspecified; K21.9 Gastro-esophageal reflux disease without esophagitis; I73.00 Raynaud's syndrome without gangrene; I65.23 Occlusion and stenosis of bilateral carotid arteries; M81.0 Age-related osteoporosis without current pathological fracture; E78.00 Pure hypercholesterolemia, unspecified; Z87.891 Personal history of nicotine dependence; I25.10 Atherosclerotic heart disease of native coronary artery without angina pectoris; K59.00 Constipation, unspecified; M47.812 Spondylosis without myelopathy or radiculopathy, cervical region; Z86.16 Personal history of COVID-19
CPT/HCPCS: 70450; 70553; 74174; 80048; 80053; 80061; 81003; 83735; 83930; 84300; 84443; 85025; 85027; 87070; 87811; 93005; 96361; 96374; 97163; 97165; 97530; 99285; A9575; Q9967

== ENCOUNTER 2025-04-20 07:48 | Emergency (ER) | payer OTHER, SELFPAY ==
[2025-04-20] VITALS (8 sets, daily range): BP systolic 96–164; BP diastolic 62–87; BMI 21.6
[2025-04-20 08:26] LABS: Hematocrit 36.0 % (37.0-47.0); Hemoglobin 12.8 g/dL (12.0-16.0); Mean Corp Hgb Conc. 35.6 g/dL (33.0-37.0); Mean Corpuscular Volume 84.9 fL (81.0-99.0); Nucleated Red Blood Cells % 0 %; Platelet Count 359 10^3/uL (130-400); Red Cell Dist. Width 13.0 % (11.5-14.5)
[2025-04-20 08:41] LABS: ALT (SGPT) 21 U/L (0-35); AST (SGOT) 26 U/L (14-36); Albumin 4.7 g/dl (3.5-5.0); Alkaline Phosphatase 91 U/L (38-126); Blood Urea Nitrogen 11 mg/dl (7-17); Calcium 9.6 mg/dl (8.4-10.2); Carbon Dioxide 21 mmol/L (22-30); Chloride 102 mmol/L (98-107); Estimated Creatinine Clearance 67 ml/min; Glucose 99 mg/dl (70-99); Lipase 114 U/L (23-300); Potassium 4.2 mmol/L (3.5-5.1); Sodium 133 mmol/L (135-145); Total Protein 7.3 g/dl (6.3-8.2); eGFR > 60.00
--- NOTE | 2025-04-20 08:46 | ED.GENMED ---
History of Present Illness
<SHAMIKA Rich - Last Filed: 04/21/25 15:31>
General
Chief Complaint: Fainting Sensation
Source: patient
Exam Limitations: none
Time Seen by Provider: 04/20/25 08:23
Nursing documentation reviewed up to this point in time: agreed with
History of Present Illness
History of Present Illness:
Patient is a 69-year-old female with suspected chronic mesenteric ischemia, hyperlipidemia vitamin D deficiency atrial tachycardia bilateral carotid stenosis SIADH vasovagal syncope presents to the ER for evaluation. Patient was recently admitted
April 15 for lightheadedness and nausea. in addition she had abdominal pain and had imaging of her abdomen at that time. It was thought that she may have chronic mesenteric ischemia. Her sodium was found to be low and her spironolactone was
discontinued. 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 There is moderate calcification along the superior right lateral
aspect of the origin of the SMA but no stenosis of the SMA. The renal arteries were also patent. Patient reports she was post to follow-up with vascular surgery Dr. Mccarthy not until May 19.
Patient reports over the past 4 days her blood pressure has been elevated more than normal and this morning she woke up feeling very nauseous and had felt the urge to have diarrhea and felt lightheaded like she was going pass out. She complains of
feeling a lot of gas discomfort. She continues to have a lot of abdominal pain and does not feel well. She is concerned about CAT scan findings and her continued abdominal pain
Past History
<SHAMIKA Rich - Last Filed: 04/21/25 15:31>
Past History
ED Past Medical History: HTN, Hypercholesterolemia and Other (Vaso vegal syncope, mineral corticocorticoid excess)
ED Past Surgical History: Gynecological (Ovarian cyst removed)
Social History
Tobacco: Former smoker
Alcohol: None
Personal:
Living: with family
Employment: Employed
Phy Exam
<SHAMIKA Rich - Last Filed: 04/21/25 15:31>
General Physical Exam
General Presentation: well appearing
General age: appears stated age
General Skin: warm and dry
General Habitus: normal
General Mental: alert
General Hydration: dry mucous membranes
Course
<SHAMIKA Rich - Last Filed: 04/21/25 15:31>
Orders/Labs/Results
Orders:
Orders
04/20/25 07:57
Electrocardiogram (*1) Urgent
Reason for Study: Vertigo / Dizzy
EKG- Treatment ONCE
04/20/25 08:19
CMP [Comprehensive Metabolic Panel] Urgent
Complete Blood Count/With Diff Urgent
Lipase Urgent
04/20/25 09:02
0.9% Sodium Chloride 1000 ml [Nss] 1,000 ml IV BOLUS
Ondansetron Injectable [Zofran] 4 mg IV NOW STA
04/20/25 09:26
Lactic Acid Urgent
04/20/25 10:09
CT Abd/pelvis Angio W/wo Iv Urgent
Comment:
Reason For Exam: abd pain
04/20/25 13:26
Dicyclomine HCl [Bentyl] 20 mg IM NOW STA
04/20/25 13:44
UA Reflex to Culture [Urinalysis Reflex To Culture] Urgent
Date Specimen was Collected: 04/20/25
Time Specimen was Collected: 13:39
Abnormal Lab Results
04/20/25 04/20/25
08:19 13:44
Hct 36.0 L %
(37.0-47.0)
Absolute Lymphs (auto) 0.7 L 10^3/uL
(1.2-3.4)
Neutrophils % 83.3 H %
(42.2-75.2)
Lymphocytes % 9.4 L %
(20.5-51.1)
Sodium 133 L mmol/L
(135-145)
Carbon Dioxide 21 L mmol/L
(22-30)
Total Bilirubin 1.5 H mg/dl
(0.2-1.3)
Urine Ketones 3+ A
(Negative)
04/20/25 08:19
04/20/25 08:19
Vital Signs
Initial and Last Documented VS:
Initial Vital Signs
Temp Pulse Resp BP Pulse Ox
98.3 F 82 16 158/71 99
04/20/25 07:53 04/20/25 07:53 04/20/25 07:53 04/20/25 07:53 04/20/25 07:53
Last Documented Vital Signs
Temp Pulse Resp BP Pulse Ox
98.3 F 71 19 96/80 98
04/20/25 07:53 04/20/25 14:15 04/20/25 14:15 04/20/25 14:00 04/20/25 13:15
Rap Artist consulted with Physician
Rap Artist consulted with physician?: Yes
Name of Physician Consulted: Taras
<Moshe Grajeda, DO - Last Filed: 04/20/25 13:23>
Orders/Labs/Results
Orders:
Orders
04/20/25 07:57
Electrocardiogram (*1) Urgent
Reason for Study: Vertigo / Dizzy
EKG- Treatment ONCE
04/20/25 08:19
CMP [Comprehensive Metabolic Panel] Urgent
Complete Blood Count/With Diff Urgent
Lipase Urgent
04/20/25 09:02
0.9% Sodium Chloride 1000 ml [Nss] 1,000 ml IV BOLUS
Ondansetron Injectable [Zofran] 4 mg IV NOW STA
04/20/25 09:26
Lactic Acid Urgent
04/20/25 10:09
CT Abd/pelvis Angio W/wo Iv Urgent
Comment:
Reason For Exam: abd pain
04/20/25 13:26
Dicyclomine HCl [Bentyl] 20 mg IM NOW STA
04/20/25 13:44
UA Reflex to Culture [Urinalysis Reflex To Culture] Urgent
Date Specimen was Collected: 04/20/25
Time Specimen was Collected: 13:39
Abnormal Lab Results
04/20/25 04/20/25
08:19 13:44
Hct 36.0 L %
(37.0-47.0)
Absolute Lymphs (auto) 0.7 L 10^3/uL
(1.2-3.4)
Neutrophils % 83.3 H %
(42.2-75.2)
Lymphocytes % 9.4 L %
(20.5-51.1)
Sodium 133 L mmol/L
(135-145)
Carbon Dioxide 21 L mmol/L
(22-30)
Total Bilirubin 1.5 H mg/dl
(0.2-1.3)
Urine Ketones 3+ A
(Negative)
04/20/25 08:19
04/20/25 08:19
Vital Signs
Initial and Last Documented VS:
Initial Vital Signs
Temp Pulse Resp BP Pulse Ox
98.3 F 82 16 158/71 99
04/20/25 07:53 04/20/25 07:53 04/20/25 07:53 04/20/25 07:53 04/20/25 07:53
Last Documented Vital Signs
Temp Pulse Resp BP Pulse Ox
98.3 F 71 19 96/80 98
04/20/25 07:53 04/20/25 14:15 04/20/25 14:15 04/20/25 14:00 04/20/25 13:15
<SHAMIKA Rich - Last Filed: 04/21/25 15:31>
MDM/Problems Addressed
Differential Diagnosis Includes:
not limited to: less likely mesenteric ischemia electrolyte abnormality hyponatremia, dehydration, anemia
MDM/Problems Addressed:
As documented patient is a 69-year-old female who was recently admitted twice recently for hyponatremia and abdominal pain. During recent admission for abdominal pain it was thought that she may have had chronic mesenteric ischemia I did review the
CAT scan. Patient came back today complaining of lightheadedness nausea feels like she is going to pass out and again has abdominal pain. She denies any fever chills and is afebrile with a normal white count sodium is minimally low at 133 however
normal renal function. Because of previous CAT scan findings I did reach out to vascular surgery and speak Dr. Mccarthy. He directly visualized the scan and does not believe that previous CAT scan showed findings consistent with mesenteric ischemia.
Will reorder and repeat the CT abdomen angio.
CT abdomen /angio negative for acute findings.. As discussed patient with a normal white count normal lactic sodium only very minimally low at 133 otherwise normal chemistries. On re-exam pt continues to c/o of gas like pain however is
well-appearing and in no acute distress. IM Bentyl ordered.
Patient has been able to drink fluids here. Patient eval by ED physician
I did message Dr. Ed REYES nothing urgent for GI to evaluate now but will try to expedite follow-up will message nurse practitioner.
As discussed with Shelia Liu [facility] [employer] appt has been made for pt for April 22. Pt is able to make this appointment and comfortable going home with Francine and Luis Felipe.
<SHAMIKA Rich - Last Filed: 04/21/25 15:31>
*Radiology
Radiology exam reviewed: radiology read reviewed
*Pulse Oximetry
SaO2: 99
Oxygen Mode of Delivery: Room air
Patient hypoxic: no
*Critical Care Note
Total Time (30-74mins, 75-104mins- exclusive of procedures): Not Applicable
Data Reviewed
Review of Other/Old Records Reveals: Labs, Radiology Studies and Discharge Summary
Source: patient and family
ED Attending Note
<SHAMIKA Rich - Last Filed: 04/21/25 15:31>
-
Portions of this chart may have been created with voice recognition software.� Occasional wrong word or��sound alike� substitutions may have occurred due to the inherent limitations of voice recognition software.
<Moshe Grajeda DO - Last Filed: 04/20/25 13:23>
ED Attending Note
Patient seen and examined by attending physician: Yes
I performed the substantive portion of visit, reviewed & personally made and approve the management plan that is documented in note by myself or [facility].: Yes
ED Attending Note:
I evaluated the patient at bedside. Although she appears uncomfortable, there is no clear concerning finding at this time. White count is normal, sodium is just slightly low at 133 (on 04/04/2025 she was down to 121). Spironolactone was recently
discontinued. Total bili will be elevated at 1.5 however the rest of LFTs and lipase are normal. Dr. Mccarthy was notified earlier today. Lactic normal.
Discharge Plan
Departure
Patient Disposition: Home (Routine Discharge)
Date of Disposition: 04/20/25
Time of Disposition: 14:41
Patient with high blood pressure during this ER visit?: No
Condition: Fair
Covid-19: Not Applicable
Discharge Problem:
Abdominal pain, Nausea
Instructions: Abdominal pain in adults - Discharge instructions
Prescriptions:
New
dicyclomine 10 mg capsule
20 mg PO QID PRN (Reason: abdominal cramping) Qty: 10 0RF
ondansetron 4 mg tablet,disintegrating
4 mg PO Q8H PRN (Reason: nausea and vomiting) Qty: 10 0RF
No Action
lutein 20 MG tablet
20 mg PO DAILY
diltiazem HCl 180 mg capsule,extended release 24hr
180 mg PO DAILY
aspirin 81 mg Tablet,Delayed Release (Dr/Ec)
81 mg PO HS
atorvastatin 80 mg Tablet
80 mg PO HS
clobetasol 0.05 % Cream
1 applic TOPICAL BID
Patient Comments:
04/14/2025, apply under B/L breasts and stomach rash.
folic acid 400 mcg Tablet
0.4 mg PO DAILY
acetaminophen [Tylenol Arthritis Pain] 650 mg Tablet Extended Release
1,300 mg PO Q8HPRN PRN (Reason: mild pain)
chlorhexidine gluconate 0.12 % Mouthwash
15 ml MUCOUS MEMBRANE .SEE BELOW
Patient Comments:
04/14/2025, pt. uses BID or TID per pt.; she is not sure for certain.
cholecalciferol (vitamin D3) 50 mcg (2,000 unit) Capsule
50 mcg PO DAILY
Benefiber (guar gum)
2 tsp PO DAILY
ezetimibe 10 mg Tablet
10 mg PO DAILY 30 Days Qty: 30 0RF
sennosides [senna] 8.6 mg tablet
8.6 mg PO BID PRN (Reason: Constipation) Qty: 30 0RF
bisacodyl 10 mg suppository
10 mg HI DAILY PRN (Reason: Constipation) Qty: 12 0RF
polyethylene glycol 3350 [Miralax] 17 gram Powder In Packet
17 g PO DAILY PRN (Reason: Constipation) Qty: 14 0RF
Referrals:
Portia Torres DO [Family Provider, Family Practice]
Dereck Miranda MD [Active, Gastroenterology]
Activity Restrictions/Additional Instructions:
As discussed an appointment has been made for you to see GI April 22 at 11:30 AM. Please call tomorrow to confirm. A prescription for Zofran and Bentyl was sent to the pharmacy please take for nausea and abdominal cramping. Continue to take your
Colace and MiraLAX. Return if any worsening of symptoms. Coal diet.
Interventions
Interventions:
*Risk Screen - Suicide Last Done: 04/20/25 07:56
*Neglect/Abuse Screening Last Done: 04/20/25 07:56
*ED- Fall Risk Assessment Last Done: 04/20/25 08:22
*ED COVID-19 Vaccine History Last Done: 04/20/25 08:22
*Nursing Disposition Last Done: 04/20/25 15:13
ED- Cardiac Assessment Last Done: 04/20/25 08:23
ED- Neurological Assessment Last Done: 04/20/25 08:23
Discharge Date and Time
Discharge Date/Time: 04/20/25 15:14
Print Language: PAPUA [place]
[2025-04-20] MEDS: ZOFRAN 4 MG IV (09:05)
[2025-04-20] MEDS: NSS 1000 IV (09:05)
[2025-04-20] MEDS: BENTYL 20 MG IM (13:43)
[2025-04-20 14:07] LABS: Urine Character Clear (Clear)
== END 2025-04-20 15:14 | disposition home or self-care (01) ==
LOC: EMR 07:48
PROVIDERS: Nurse Practitioner; EMERGENCY PHYSICIAN Emergency Medicine; FAMILY PHYSICIAN Family Medicine
DX: R10.9 Unspecified abdominal pain (principal); R11.0 Nausea; R42 Dizziness and giddiness; I70.8 Atherosclerosis of other arteries; I10 Essential (primary) hypertension; E78.00 Pure hypercholesterolemia, unspecified; Z87.891 Personal history of nicotine dependence
CPT/HCPCS: 96374; 96372; 96361; 99284; 74174; 80053; 81003; 83605; 83690; 85025; 93005; Q9967

== ENCOUNTER → 2025-05-07 13:13 | Outpatient (REF) | payer OTHER, SELFPAY | LOC: WDC 13:13 | PROVIDERS: ATTENDING PHYSICIAN Family Medicine; REFERRING PHYSICIAN Obstetrics & Gynecology | DX: Z12.31 Encounter for screening mammogram for malignant neoplasm of breast (principal) | CPT/HCPCS: 77063; 77067 ==

== ENCOUNTER → 2025-07-12 08:51 | Outpatient (REF) | payer OTHER, SELFPAY | LOC: PAVMRI 08:51 | PROVIDERS: ATTENDING PHYSICIAN Otolaryngology; FAMILY PHYSICIAN Family Medicine | DX: H90.A21 Sensorineural hearing loss, unilateral, right ear, with restricted hearing on the contralateral side (principal) | CPT/HCPCS: 70553; A9575 ==

== ENCOUNTER 2025-08-18 15:12 | Emergency (ER) | payer OTHER, SELFPAY ==
[2025-08-18 15:24] VITALS: BP 162/75
[2025-08-18 15:26] VITALS: BP 162/75
[2025-08-18 15:51] LABS: Urine Character Clear (Clear)
[2025-08-18 16:07] LABS: AST (SGOT) 31 U/L (14-36); Albumin 4.7 g/dl (3.5-5.0); Blood Urea Nitrogen 12 mg/dl (7-17); Calcium 9.4 mg/dl (8.4-10.2); Carbon Dioxide 25 mmol/L (22-30); Chloride 100 mmol/L (98-107); Glucose 108 mg/dl (70-99); Potassium 4.8 mmol/L (3.5-5.1); Total Protein 7.6 g/dl (6.3-8.2); eGFR > 60.00
[2025-08-18 16:19] LABS: Troponin I < 0.012 ng/ml
--- NOTE | 2025-08-18 16:33 | ED.GENMED ---
History of Present Illness
General
Chief Complaint: Dizziness
Source: patient
Exam Limitations: none
Time Seen by Provider: 08/18/25 16:28
History of Present Illness
History of Present Illness:
70-year-old female with history of hyponatremia and hypertension presents with onset of feeling weak and just off today. She also felt lightheaded like she was going to pass out. No chest pain. She does note left lower abdominal pain. She notes
urinary frequency. No fevers or shortness of breath. No leg swelling. She is followed with GI as well as nephrology. No other complaints at this time
Past History
Past History
ED Past Medical History: HTN, Hypercholesterolemia and Other (Vaso vegal syncope, mineral corticocorticoid excess)
ED Past Surgical History: Gynecological (Ovarian cyst removed)
Social History
Tobacco: Former smoker
Alcohol: None
Personal:
Living: with family
Employment: Employed
Phy Exam
Physical Exam
Physical Exam:
General: Well-appearing female no acute respiratory distress
HEENT: Normal cephalic atraumatic
Heart: Regular rate and rhythm
Lungs: Clear no wheeze
Abdomen soft tender to the left lower quadrant no guarding nondistended
Extremities: No edema
Course
Orders/Labs/Results
Orders:
Orders
08/18/25 15:31
Electrocardiogram (*1) Urgent
Reason for Study: Syncope
EKG- Treatment ONCE
08/18/25 15:46
CMP [Comprehensive Metabolic Panel] Urgent
Troponin I Urgent
Urinalysis Reflex To Culture Urgent
Date Specimen was Collected: 08/18/25
Time Specimen was Collected: 15:34
08/18/25 16:58
CT Abd/pelvis W Iv Cont Urgent
Comment:
Reason For Exam: llq pain
08/18/25 17:10
Complete Blood Count/With Diff Urgent
08/18/25 18:39
Acetaminophen [Tylenol] 1,000 mg PO NOW STA
08/18/25 18:40
Acetaminophen [Tylenol] 1,000 mg .ROUTE .STK-MED ONE
Abnormal Lab Results
08/18/25 08/18/25
15:46 17:10
WBC 10.9 H 10^3/uL
(4.8-10.8)
Absolute Neuts (auto) 9.5 H 10^3/uL
(1.4-6.5)
Absolute Lymphs (auto) 0.8 L 10^3/uL
(1.2-3.4)
Neutrophils % 87.2 H %
(42.2-75.2)
Lymphocytes % 7.7 L %
(20.5-51.1)
Sodium 132 L mmol/L
(135-145)
Glucose 108 H mg/dl
(70-99)
Urine Ketones 1+ A
(Negative)
08/18/25 17:10
08/18/25 15:46
Vital Signs
Initial and Last Documented VS:
Initial Vital Signs
Temp Pulse Resp BP Pulse Ox
98.4 F 83 18 162/75 99
08/18/25 15:24 08/18/25 15:24 08/18/25 15:24 08/18/25 15:24 08/18/25 15:24
Last Documented Vital Signs
Temp Pulse Resp BP Pulse Ox
98.2 F 78 18 153/65 98
08/18/25 15:26 08/18/25 19:41 08/18/25 19:41 08/18/25 19:41 08/18/25 19:41
MDM/Problems Addressed
Differential Diagnosis Includes:
Patient here with generalized fatigue left lower abdominal discomfort and urinary frequency. History of hyponatremia. Consider recurrent hyponatremia versus UTI versus diverticulitis or renal colic
Will check labs urinalysis CT
*Pulse Oximetry
SaO2: 100
Oxygen Mode of Delivery: Room air
Patient hypoxic: no
*Critical Care Note
Total Time (30-74mins, 75-104mins- exclusive of procedures): Not Applicable
Update Note
Update Note:
Labs reviewed normal sodium normal potassium CT shows large amount of stool to suggest constipation. Patient remained stable and nontoxic. Workup otherwise within normal limits. She does have some elevated blood pressure readings. She follows
with nephrology for this. No indication for admission. Stable for discharge
ED Attending Note
-
Portions of this chart may have been created with voice recognition software.� Occasional wrong word or��sound alike� substitutions may have occurred due to the inherent limitations of voice recognition software.
Discharge Plan
Departure
Patient Disposition: Home (Routine Discharge)
Date of Disposition: 08/18/25
Time of Disposition: 20:16
Patient with high blood pressure during this ER visit?: No
Discharge Problem:
Lightheadedness
Instructions: BLOOD PRESSURE
Prescriptions:
No Action
lutein 20 MG tablet
20 mg PO DAILY
diltiazem HCl 180 mg capsule,extended release 24hr
180 mg PO DAILY
aspirin 81 mg Tablet,Delayed Release (Dr/Ec)
81 mg PO HS
atorvastatin 80 mg Tablet
80 mg PO HS
clobetasol 0.05 % Cream
1 applic TOPICAL BID
Patient Comments:
04/14/2025, apply under B/L breasts and stomach rash.
folic acid 400 mcg Tablet
0.4 mg PO DAILY
acetaminophen [Tylenol Arthritis Pain] 650 mg Tablet Extended Release
1,300 mg PO Q8HPRN PRN (Reason: mild pain)
chlorhexidine gluconate 0.12 % Mouthwash
15 ml MUCOUS MEMBRANE .SEE BELOW
Patient Comments:
04/14/2025, pt. uses BID or TID per pt.; she is not sure for certain.
cholecalciferol (vitamin D3) 50 mcg (2,000 unit) Capsule
50 mcg PO DAILY
Benefiber (guar gum)
2 tsp PO DAILY
ezetimibe 10 mg Tablet
10 mg PO DAILY 30 Days Qty: 30 0RF
sennosides [senna] 8.6 mg tablet
8.6 mg PO BID PRN (Reason: Constipation) Qty: 30 0RF
bisacodyl 10 mg suppository
10 mg [place] DAILY PRN (Reason: Constipation) Qty: 12 0RF
polyethylene glycol 3350 [Miralax] 17 gram Powder In Packet
17 g PO DAILY PRN (Reason: Constipation) Qty: 14 0RF
dicyclomine 10 mg capsule
20 mg PO QID PRN (Reason: abdominal cramping) Qty: 10 0RF
ondansetron 4 mg tablet,disintegrating
4 mg PO Q8H PRN (Reason: nausea and vomiting) Qty: 10 0RF
Referrals:
Portia Torres DO [Family Provider, Family Practice]
Activity Restrictions/Additional Instructions:
Stay hydrated. Return here for worsening symptoms otherwise follow-up with your doctor
Interventions
Interventions:
*Risk Screen - Suicide Last Done: 08/18/25 15:26
*General Assessment Last Done: 08/18/25 18:38
*Neglect/Abuse Screening Last Done: 08/18/25 15:26
*ED- Fall Risk Assessment Last Done: 08/18/25 18:38
*ED COVID-19 Vaccine History Last Done: 08/18/25 15:30
*ED Influenza Vaccine History Last Done: 08/18/25 15:30
ED- Neurological Assessment Last Done: 08/18/25 17:20
ED- Cardiac Assessment Last Done: 08/18/25 18:38
Discharge Date and Time
Print Language: TANZANIAN
[2025-08-18 17:17] LABS: ALT (SGPT) 27 U/L (0-35); Alkaline Phosphatase 81 U/L (38-126); Sodium 132 mmol/L (135-145)
[2025-08-18 17:30] LABS: Hematocrit 39.0 % (37.0-47.0); Hemoglobin 13.0 g/dL (12.0-16.0); Mean Corp Hgb Conc. 33.3 g/dL (33.0-37.0); Mean Corpuscular Volume 89.7 fL (81.0-99.0); Nucleated Red Blood Cells % 0 %; Platelet Count 255 10^3/uL (130-400); Red Cell Dist. Width 13.2 % (11.5-14.5)
[2025-08-18] MEDS: TYLENOL 1000 MG PO (18:42)
[2025-08-18 19:41] VITALS: BP 153/65
== END 2025-08-18 20:44 | disposition home or self-care (01) ==
LOC: EMR 15:12
PROVIDERS: Emergency Medicine; Physician Assistant; EMERGENCY PHYSICIAN Emergency Medicine; FAMILY PHYSICIAN Family Medicine
DX: R42 Dizziness and giddiness (principal); I10 Essential (primary) hypertension; E78.00 Pure hypercholesterolemia, unspecified; Z87.891 Personal history of nicotine dependence
CPT/HCPCS: 99284; 74177; 80053; 81003; 84484; 85025; 93005; Q9967